=== PATIENT | female | born 1940 | race Caucasian/White ===

== ENCOUNTER 2017-11-10 16:09 | Inpatient (IN) ==
[2017-11-10] MEDS ORDERED: Naloxone 0.4 MG/ML INJ IVP PRN (21:47)
[2017-11-10] MEDS ORDERED: OXYCODONE Oral CONC 10 MG/0.5 ML ORAL.SYG SL PRN (21:47)
[2017-11-10] MEDS ORDERED: Ondansetron 4 MG/2 ML VIAL IVP PRN (21:47)
[2017-11-10] MEDS ORDERED: Melatonin 3 MG TABLET PO PRN (21:52)
[2017-11-10 21:55] LABS: Basophils % 0.1 %; Hematocrit 31.7 % (35.3-44.9); Hemoglobin 10.3 g/dL (11.5-15.4); Immature Granulocytes % 1.3 % (0-4); Lymphocytes # 1.1 K/mcL (0.6-4.6); Lymphocytes % 5.2 %; Mean Corpuscular HGB Conc 32.5 g/dL (31.6-35.5); Mean Corpuscular Hemoglobin 29.6 pg (28.0-33.3); Mean Corpuscular Volume 91.1 fL (83.0-100.0); Mean Platelet Volume 9.4 fL (9.4-12.4); Monocytes # 1.2 K/mcL (0.0-1.3); Monocytes % 5.5 %; Neutrophils # 18.9 K/mcL (1.6-8.9); Platelet Count 195 K/mcL (140-400); Red Blood Count 3.48 M/mcL (3.82-4.97); Red Cell Distribution Width 12.9 % (11.5-14.5); Segmented Neutrophils % 87.9 %
[2017-11-10 22:00] LABS: INR 1.3; Prothrombin Time 13.8 Seconds (9.4-12.1)
[2017-11-10] MEDS ORDERED: 0.9 % Sodium Chloride 1,000 ML IVC SCH (22:00)
[2017-11-10] MEDS ORDERED: Methyl Salicylate/Menthol 28 GM TUBE TP PRN (22:14)
[2017-11-10 22:19] LABS: Albumin 3.5 g/dL (3.5-5.7); Albumin/Globulin Ratio 1.1 (1.1-2.2); Bilirubin,Direct 0.4 mg/dL (0.0-0.2); Bilirubin,Indirect 0.5 mg/dL (0.0-1.2); Bilirubin,Total 0.9 mg/dL (0.3-1.0); Globulin 3.2 g/dL (2.4-3.5); Total Protein 6.7 g/dL (6.4-8.9)
[2017-11-10] MEDS: Piperacillin/Tazobactam 3.375 GM in 0.9 % Sodium Chloride Mini Bag 100 ML IVPB SCH (23:41)
[2017-11-10] MEDS ORDERED: 0.9 % Sodium Chloride 500 ML IVC ONE (23:48)
--- NOTE | 2017-11-10 23:59 | Internal Med History&Physical ---
Date of Encounter: 11/10/17 Time of Encounter: 22:00 Assessment and Plan (1) Sepsis Current visit: Yes Status: Acute Patient meets sepsis criteria with fever, and leukocytosis. The source of infection is suspected acute cholecystitis. - IV fluid resuscitation started in [place] emergency room, will continue - Antibiotics started, follow-up blood culture - Initial lactate acid level 1.29. Qualifiers: Sepsis type: sepsis due to unspecified organism Qualified Code(s): A41.9 - Sepsis, unspecified organism (2) Acute cholecystitis Current visit: Yes Status: Acute Place patient on nothing by mouth. IV fluid. IV antibiotics. Surgical consult. MRCP in a.m. to rule out bile duct obstruction. (3) History of CVA (cerebrovascular accident) Current visit: Yes Status: Acute May resume home medication if patient resume diet (4) DVT prophylaxis Current visit: Yes Status: Acute EPCD. Hold AC for possible surgery. Internal Medicine - H&P: HPI Chief complaint: Abdominal pain Admitted From: Home Plans for Post Hospital Care: Home History of present illness: Ms. Hernández is a 77 year old female with history of CVA with left-sided residual weakness, osteoarthritis, presented to [place] emergency room for abdominal pain for 3 days. Patient also has nausea and vomited several times. The vomiting are yellowish liquid, no blood in it. Patient has fever and few chills. Patient denies diarrhea or urination symptoms. In [place] emergency room, CT abdomen reveals acute cholecystitis. Patient has leukocytosis. Patient was given 3 L IV fluid and Zosyn 1 dose. General surgery consult was called by [place] emergency room. Patient was transferred to us for further management. I have discussed CODE STATUS with patient. Patient is awake alert oriented 3. she clearly told me that she does not want CPR if cardiac arrest happens but accept intubation if necessary. DNR CCA was placed. Past Med Surg Social Fam HX - Past Medical History Medical history: arthritis, CVA, hypertension, osteoporosis Psychiatric history: no psych history - Past Surgical History Surgical History: orthopedic, other - Social History Smoking Status: Former smoker Alcohol use: none Drug use: none - Family History Father Living Status: Hx Family Respiratory Disorders: Yes (COPD) Mother Living Status: Internal Medicine - H&P: Meds 3 Allergy/AdvReac Type Severity Reaction Status Date / Time prednisone AdvReac See Verified 11/10/17 20:07 Comments All Systems PM: A 10-system review of systems was performed and is negative for pertinent findings except as documented above in the HPI. - Constitutional Vitals: Temp Pulse Resp BP Pulse Ox 100.9 F H 76 14 78/44 94 11/10/17 23:24 11/10/17 23:30 11/10/17 23:30 11/10/17 23:30 11/10/17 23:24 General appearance: Present: A&O X 3, no acute distress, answers questions appropriately - Head Head exam: Present: atraumatic, normocephalic - Eye Eye exam: Present: PERRL, conjuntiva pink, sclera anicteric Pupils: Present: PERRL - Neck Neck exam general surgery: Present: supple, trachea midline. Absent: lymphadenopathy - Respiratory Respiratory exam: Present: CTAB. Absent: accessory muscle use, rales, rhonchi, wheezes - Cardiovascular Cardiovascular exam: Present: RRR, +S1, +S2. Absent: diastolic murmur, gallop, rubs, systolic murmur - GI/Abdominal GI/Abdominal exam: Present: normal bowel sounds, soft, tenderness (Mild abdominal tenderness, Morphy's sign positive), no peritoneal signs. Absent: distended - Extremities Exam Extremities exam: Present: warm, radial pulses palpable and symmetrical. Absent : calf tenderness, cyanotic, pedal edema - Neurological Exam Neurological exam: Present: CN II-XII intact, oriented X3, no focal deficits. Absent: pronater drift, facial droop, speech deficit - Skin Skin exam: Present: dry, intact Internal Med - H&P Results - Labs CBC & Chem 7: 11/10/17 21:42 Labs: Short CBC 11/10/17 Range/Units 21:42 WBC 21.5 H (4.3-11.1) K/mcL Hgb 10.3 L (11.5-15.4) g/dL Hct 31.7 L (35.3-44.9) % Plt Count 195 (140-400) K/mcL Neutrophils # 18.9 H (1.6-8.9) K/mcL Liver Function 11/10/17 Range/Units 21:42 Total Bilirubin 0.9 (0.3-1.0) mg/dL Direct Bilirubin 0.4 H (0.0-0.2) mg/dL AST 20 (13-39) Units/L ALT 13 (7-52) Units/L Alkaline Phosphatase 44 (34-104) Units/L Albumin 3.5 (3.5-5.7) g/dL
[2017-11-11 00:44] LABS: Basophils % 0.1 %; Hematocrit 29.6 % (35.3-44.9); Hemoglobin 9.5 g/dL (11.5-15.4); Immature Granulocytes % 1.5 % (0-4); Lymphocytes % 4.7 %; Mean Corpuscular HGB Conc 32.1 g/dL (31.6-35.5); Mean Corpuscular Hemoglobin 29.4 pg (28.0-33.3); Mean Corpuscular Volume 91.6 fL (83.0-100.0); Mean Platelet Volume 9.6 fL (9.4-12.4); Monocytes # 1.2 K/mcL (0.0-1.3); Monocytes % 5.6 %; Neutrophils # 19.3 K/mcL (1.6-8.9); Platelet Count 188 K/mcL (140-400); Red Blood Count 3.23 M/mcL (3.82-4.97); Red Cell Distribution Width 12.9 % (11.5-14.5); Segmented Neutrophils % 88.1 %
[2017-11-11] MEDS: 0.9 % Sodium Chloride 1,000 ML IVC SCH ×2 (00:51→12:03)
[2017-11-11 01:06] LABS: BUN/Creatinine Ratio 26 (6-26); Blood Urea Nitrogen 23 mg/dL (8-23); Calcium 8.3 mg/dL (8.6-10.3); Carbon Dioxide 21 mEq/L (23-29); Chloride 108 mEq/L (98-107); Glucose 87 mg/dL (70-105); Magnesium 1.6 mg/dL (1.6-2.6); Osmolality,Calculated 285 (280-300); Potassium 3.6 mEq/L (3.5-5.1); Sodium 136 mEq/L (136-145); eGFR For African Americans > 60 (> 60); eGFR For Non-African Americans > 60 (> 60)
[2017-11-11 06:57] LABS: Alanine Aminotransferase 12 Units/L (7-52); Albumin 3.3 g/dL (3.5-5.7); Albumin/Globulin Ratio 1.1 (1.1-2.2); Alkaline Phosphatase 41 Units/L (34-104); Aspartate Amino Transferase 18 Units/L (13-39); Bilirubin,Direct 0.3 mg/dL (0.0-0.2); Bilirubin,Indirect 0.5 mg/dL (0.0-1.2); Bilirubin,Total 0.8 mg/dL (0.3-1.0); Globulin 2.9 g/dL (2.4-3.5); Total Protein 6.2 g/dL (6.4-8.9)
[2017-11-11] MEDS: Piperacillin/Tazobactam 3.375 GM in 0.9 % Sodium Chloride Mini Bag 100 ML IVPB SCH ×3 (08:03→23:41)
--- NOTE | 2017-11-11 11:46 | General Surgery Consult Note ---
<Génesis Bell - Last Filed: 11/11/17 11:42> Date of Encounter: 11/11/17 Time of Encounter: 11:30 Assessment and Plan (1) Acute cholecystitis Current Visit: Yes Status: Acute NPO IV fluids IV antibiotics- Zosyn Supportive care and pain control Risks, benefits, alternatives, expected outcomes have been reviewed with the patient and she is in agreement to proceed to the operating room today with Dr. Graham for a laparoscopic cholecystectomy with possible cholangiogram and possible open Incentive Spirometer every 1 hour while awake Ambulate hallways TID with assistance PPI daily for GI prophylaxis Repeat am labs- CBC (2) History of CVA (cerebrovascular accident) Current Visit: Yes Status: Acute Hold plavix for now for surgical intervention Last dose 11/10/17 History of Present Illness Consult date: 11/11/17 Reason for consult: other (Acute cholecystitis) Requesting physician: Tari Travis History of present illness: Mrs. Hernández is a 77 year old female with multiple comorbidities who presented to [place] from [facility] with complaints of a 3 day history of abdominal pain. She states that her abdomen hurt all over. She describes as a sharp and stabbing pain which was constant. She denies ever having pain like this before. She is unable to pinpoint any aggravating or alleviating factors. She does report multiple episodes of nausea and vomiting. Denies any hematemesis or coffee-ground emesis. Denies any diarrhea or constipation. Denies any heartburn. Denies any difficulty with urination. She did have a CAT scan at [facility] which was concerning for acute cholecystitis. She was transferred for further workup. She has had an MRCP today which confirms acute cholecystitis as well as cholelithiasis with a gallstone in the neck of the gallbladder and cystic duct. We have been asked to see and evaluate the patient for evaluation and treatment. The patient is on Plavix for a history of a CVA. She states her last dose of Plavix was yesterday 11/10/17. Past Med Surg Social Fam HX - Past Medical History Source: patient Medical history: arthritis, CVA (residual left sided weakness), hypertension, osteoporosis, other (spinal stenosis) Psychiatric history: no psych history - Past Surgical History Surgical History: appendectomy, orthopedic, other (spine surgery for removal of a bone spur), other (colonoscopy approximately 10 years ago (normal exam)) - Social History Smoking Status: Former smoker Alcohol use: none Drug use: none Current living situation: Home - Independent Activity Level: Independent ambulation - Family History Father Living Status: Hx Family Respiratory Disorders: Yes (COPD) Mother Living Status: Medications and Allergies Citalopram Hydrobromide [Citalopram HBr] 10 mg PO DAILY 11/11/17 [History] Clopidogrel [Plavix] 75 mg PO DAILY 11/11/17 [History] Gabapentin [Neurontin] 300 mg PO TID 11/11/17 [History] HYDROcodone/Acet 5/325 mg [[place] 5-325 mg] 1 tab PO TID PRN 11/11/17 [History] Lisinopril [Zestril] 10 mg PO DAILY 11/11/17 [History] Polyethylene Glycol 3350 [MiraLAX bowel prep] 17 gm PO Q48H 11/11/17 [History] Rosuvastatin Calcium [Crestor] 5 mg PO HS 11/11/17 [History] 3 Allergy/AdvReac Type Severity Reaction Status Date / Time prednisone AdvReac See Verified 11/11/17 09:35 Comments Review of Systems All systems PM: reviewed and no additional remarkable complaints except as stated (in the HPI) All systems PM: The remainder of the systems were reviewed and are negative General Surgery Exam Initial Vital Signs Temp Pulse Resp BP Pulse Ox 100.5 F H 78 17 91/48 92 11/10/17 20:05 11/10/17 20:05 11/10/17 20:05 11/10/17 20:05 11/10/17 20:05 - General physical appearance well developed, well nourished, moderate pain, chronically ill - Eyes normal ocular movement - ENT normal mucosa, atraumatic, normocephalic - Neck trachea midline - Cardiovascular Cardiovascular exam: Present: RRR - Abdomen Abdomen general surgery: Present: bowel sounds present, soft, tender Abdominal Tenderness: Present: diffusely - Integumentary Integumentary general surgery: Present: warm and dry - Neurologic Present: CN 2-12 grossly intact - Musculoskeletal Present: other (left sided weakness from previous CVA in her 40's) - Psychiatric Psychiatric general surgery: Present: appropriate, oriented to person, oriented to place, oriented to time, speech is normal, memory intact Exam Initial Vital Signs Temp Pulse Resp BP Pulse Ox 100.5 F H 78 17 91/48 92 11/10/17 20:05 11/10/17 20:05 11/10/17 20:05 11/10/17 20:05 11/10/17 20:05 Results - Labs 11/11/17 00:30 11/11/17 00:30 Abnormal lab results WBC 21.9 K/mcL (4.3-11.1) H 11/11/17 00:30 RBC 3.23 M/mcL (3.82-4.97) L 11/11/17 00:30 Hgb 9.5 g/dL (11.5-15.4) L 11/11/17 00:30 Hct 29.6 % (35.3-44.9) L 11/11/17 00:30 Neutrophils # 19.3 K/mcL (1.6-8.9) H 11/11/17 00:30 PT 13.8 Seconds (9.4-12.1) H 11/10/17 21:42 Chloride 108 mEq/L (98-107) H 11/11/17 00:30 Carbon Dioxide 21 mEq/L (23-29) L 11/11/17 00:30 POC Glucose 90 mg/dL (58-89) H 11/11/17 11:01 Calcium 8.3 mg/dL (8.6-10.3) L 11/11/17 00:30 Direct Bilirubin 0.3 mg/dL (0.0-0.2) H 11/11/17 00:30 Serum Total Protein 6.2 g/dL (6.4-8.9) L 11/11/17 00:30 Albumin 3.3 g/dL (3.5-5.7) L 11/11/17 00:30 Diabetes panel 11/10/17 11/11/17 Range/Units 21:42 00:30 Sodium 136 (136-145) mEq/L Potassium 3.6 (3.5-5.1) mEq/L Chloride 108 H (98-107) mEq/L Carbon Dioxide 21 L (23-29) mEq/L BUN 23 (8-23) mg/dL Creatinine 0.90 (0.60-1.20) mg/dL Glucose 87 (70-105) mg/dL Calcium 8.3 L (8.6-10.3) mg/dL AST 20 18 (13-39) Units/L ALT 13 12 (7-52) Units/L Alkaline Phosphatase 44 41 (34-104) Units/L Albumin 3.5 3.3 L (3.5-5.7) g/dL Calcium panel 11/10/17 11/11/17 Range/Units 21:42 00:30 Calcium 8.3 L (8.6-10.3) mg/dL Albumin 3.5 3.3 L (3.5-5.7) g/dL Pituitary panel 11/11/17 Range/Units 00:30 Sodium 136 (136-145) mEq/L Potassium 3.6 (3.5-5.1) mEq/L Chloride 108 H (98-107) mEq/L Carbon Dioxide 21 L (23-29) mEq/L BUN 23 (8-23) mg/dL Creatinine 0.90 (0.60-1.20) mg/dL Glucose 87 (70-105) mg/dL Calcium 8.3 L (8.6-10.3) mg/dL Adrenal panel 11/10/17 11/11/17 Range/Units 21:42 00:30 Sodium 136 (136-145) mEq/L Potassium 3.6 (3.5-5.1) mEq/L Chloride 108 H (98-107) mEq/L Carbon Dioxide 21 L (23-29) mEq/L BUN 23 (8-23) mg/dL Creatinine 0.90 (0.60-1.20) mg/dL Glucose 87 (70-105) mg/dL Calcium 8.3 L (8.6-10.3) mg/dL Total Bilirubin 0.9 0.8 (0.3-1.0) mg/dL AST 20 18 (13-39) Units/L ALT 13 12 (7-52) Units/L Alkaline Phosphatase 44 41 (34-104) Units/L Albumin 3.5 3.3 L (3.5-5.7) g/dL All other labs normal. - Imaging Additional studies: Abdomen MRI 11/11/17 09:07 IMPRESSION: 2 cm gallstone positioned in the gallbladder neck/cystic duct with imaging findings consistent with acute cholecystitis. There is no biliary dilatation or evidence for choledocholithiasis. Small volume ascites. Trace ascites. Lower lobe opacities are favored to represent relaxation atelectasis. The findings were sent to the Radiology Results Communication [facility] at 10:36 am on 11/11/2017to be communicated to a licensed caregiver. D/ / Reinaldo Hernandez / Reinaldo Hernandez Interpreting Provider: Reinaldo Hernandez Consult Discharge Plan - Plan Referrals: Rasheeda Yeh MD [Non-Partnered Physician] - - Attending Attestation For this encounter, I have reviewed the SUPPLY CHAIN PLANNER or PA documentation, treatment plan, and medical decision making; and I have had face to face time with this patient. <Nakia Graham - Last Filed: 11/11/17 13:15> Date of Encounter: 11/11/17 Assessment and Plan (1) Acute cholecystitis Current Visit: Yes Status: Acute discussed imaging CT and MRCP with patient, she has acute cholecystitis, will plan laparoscopic cholecystectomy, possible cholangiograms, possible open , risks and benefits discussed and she wishes to proceed continue abx npo prn pain control Review of Systems All systems PM: The remainder of the systems were reviewed and are negative General Surgery Exam Initial Vital Signs Temp Pulse Resp BP Pulse Ox 100.5 F H 78 17 91/48 92 11/10/17 20:05 11/10/17 20:05 11/10/17 20:05 11/10/17 20:05 11/10/17 20:05 - General physical appearance well developed, well nourished, moderate pain - Eyes PERRL, normal ocular movement - ENT normal mucosa, normocephalic - Neck trachea midline - Respiratory normal expansion - Cardiovascular Cardiovascular exam: Present: RRR - Abdomen Abdomen general surgery: Present: bowel sounds present, soft, tender. Absent: distended, guarding, rebound Abdominal Tenderness: Present: RUQ - Integumentary Integumentary general surgery: Present: warm and dry - Neurologic Present: CN 2-12 grossly intact - Musculoskeletal Present: other - Psychiatric Psychiatric general surgery: Present: A&Ox3, speech is normal Exam Initial Vital Signs Temp Pulse Resp BP Pulse Ox 100.5 F H 78 17 91/48 92 11/10/17 20:05 11/10/17 20:05 11/10/17 20:05 11/10/17 20:05 11/10/17 20:05 Results - Labs 11/11/17 00:30 11/11/17 00:30 Abnormal lab results WBC 21.9 K/mcL (4.3-11.1) H 11/11/17 00:30 RBC 3.23 M/mcL (3.82-4.97) L 11/11/17 00:30 Hgb 9.5 g/dL (11.5-15.4) L 11/11/17 00:30 Hct 29.6 % (35.3-44.9) L 11/11/17 00:30 Neutrophils # 19.3 K/mcL (1.6-8.9) H 11/11/17 00:30 PT 13.8 Seconds (9.4-12.1) H 11/10/17 21:42 Chloride 108 mEq/L (98-107) H 11/11/17 00:30 Carbon Dioxide 21 mEq/L (23-29) L 11/11/17 00:30 POC Glucose 90 mg/dL (58-89) H 11/11/17 11:01 Calcium 8.3 mg/dL (8.6-10.3) L 11/11/17 00:30 Direct Bilirubin 0.3 mg/dL (0.0-0.2) H 11/11/17 00:30 Serum Total Protein 6.2 g/dL (6.4-8.9) L 11/11/17 00:30 Albumin 3.3 g/dL (3.5-5.7) L 11/11/17 00:30 Diabetes panel 11/10/17 11/11/17 Range/Units 21:42 00:30 Sodium 136 (136-145) mEq/L Potassium 3.6 (3.5-5.1) mEq/L Chloride 108 H (98-107) mEq/L Carbon Dioxide 21 L (23-29) mEq/L BUN 23 (8-23) mg/dL Creatinine 0.90 (0.60-1.20) mg/dL Glucose 87 (70-105) mg/dL Calcium 8.3 L (8.6-10.3) mg/dL AST 20 18 (13-39) Units/L ALT 13 12 (7-52) Units/L Alkaline Phosphatase 44 41 (34-104) Units/L Albumin 3.5 3.3 L (3.5-5.7) g/dL Calcium panel 11/10/17 11/11/17 Range/Units 21:42 00:30 Calcium 8.3 L (8.6-10.3) mg/dL Albumin 3.5 3.3 L (3.5-5.7) g/dL Pituitary panel 11/11/17 Range/Units 00:30 Sodium 136 (136-145) mEq/L Potassium 3.6 (3.5-5.1) mEq/L Chloride 108 H (98-107) mEq/L Carbon Dioxide 21 L (23-29) mEq/L BUN 23 (8-23) mg/dL Creatinine 0.90 (0.60-1.20) mg/dL Glucose 87 (70-105) mg/dL Calcium 8.3 L (8.6-10.3) mg/dL Adrenal panel 11/10/17 11/11/17 Range/Units 21:42 00:30 Sodium 136 (136-145) mEq/L Potassium 3.6 (3.5-5.1) mEq/L Chloride 108 H (98-107) mEq/L Carbon Dioxide 21 L (23-29) mEq/L BUN 23 (8-23) mg/dL Creatinine 0.90 (0.60-1.20) mg/dL Glucose 87 (70-105) mg/dL Calcium 8.3 L (8.6-10.3) mg/dL Total Bilirubin 0.9 0.8 (0.3-1.0) mg/dL AST 20 18 (13-39) Units/L ALT 13 12 (7-52) Units/L Alkaline Phosphatase 44 41 (34-104) Units/L Albumin 3.5 3.3 L (3.5-5.7) g/dL All other labs normal. - Imaging CT scan - abdomen: report reviewed - Attending Attestation I have personally performed a face to face evaluation on this patient. I have reviewed and agree with the care plan. History and Exam by me shows:
[2017-11-11] MEDS ORDERED: Ketorolac 15 MG/ML VIAL IVP ONE (12:00)
[2017-11-11] MEDS: Gabapentin 300 MG CAPSULE PO SCH ×3 (12:03→21:26)
[2017-11-11] MEDS ORDERED: Lidocaine -MPF 2% 2 ML VIAL ONE (12:32)
[2017-11-11] MEDS ORDERED: *HR* Rocuronium Bromide 50 MG/5 ML VIAL ONE (12:32)
[2017-11-11] MEDS ORDERED: Ondansetron 4 MG/2 ML VIAL ONE (12:32)
[2017-11-11] MEDS ORDERED: *HR* Propofol 200 MG/20 ML VIAL IVP ONE (12:33)
[2017-11-11] MEDS ORDERED: *HR* FentaNYL (PF) 100 MCG/2 ML VIAL ONE (12:33)
[2017-11-11] MEDS ORDERED: Isovue-300 50 ML VIAL IVP ONE (12:57)
--- NOTE | 2017-11-11 13:12 | Anesthesia Evaluation PreOp ---
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 History: CVA (left residual weakness) Other Medical History: Denies Any Significant HX Anesthesia History: No Prior Anesthetic Complications, Past Anesthesia Alcohol Use: none Drug use: none Medications and Allergies Citalopram Hydrobromide [Citalopram HBr] 10 mg PO DAILY 11/11/17 [History] Clopidogrel [Plavix] 75 mg PO DAILY 11/11/17 [History] Gabapentin [Neurontin] 300 mg PO TID 11/11/17 [History] HYDROcodone/Acet 5/325 mg [[place] 5-325 mg] 1 tab PO TID PRN 11/11/17 [History] Lisinopril [Zestril] 10 mg PO DAILY 11/11/17 [History] Polyethylene Glycol 3350 [MiraLAX bowel prep] 17 gm PO Q48H 11/11/17 [History] Rosuvastatin Calcium [Crestor] 5 mg PO HS 11/11/17 [History] 3 Allergy/AdvReac Type Severity Reaction Status Date / Time prednisone AdvReac See Verified 11/11/17 09:35 Comments - Meds/Allergy Pre-op Review Medications Reviewed: Yes Allergies Reviewed: Yes Beta Blockers on Current Med List: No Anesthesia Results - Labs 11/11/17 00:30 11/11/17 00:30 - Imaging EKG: report reviewed (11/11/2017 SR) Anesthesia Exam Vital Signs/O2 Sat/Glucose, Most Recent Temp Pulse Resp BP Pulse Ox 99.0 F 67 17 109/58 87 11/11/17 10:58 11/11/17 10:58 11/11/17 10:58 11/11/17 10:58 11/11/17 10:58 Blood Glucose* 90 Height: 5'4''/1.63 m Weight: 129 lbs/58.5 kg NPO (# of Hours): 8 - HEENT Pupil (Motor): EOMI Mallampati: II Teeth: Edentulous Oral Opening: Greater than 3 - BEATER DUMPER LOC: Oriented BEATER DUMPER Motor: Normal RUE, Normal RLE, Normal Face, Deficit LUE, Deficit LLE BEATER DUMPER Sensory: Normal: RUE, RLE, Face, Deficit: LUE, LLE - Cardiac Rhythm: Regular Murmur: None - Pulmonary Breath Sounds: bilateral Clear Respiratory Effort: Symmetrical Anesthesia Assess/Plan ASA Score: 3 Modified Lisa Scale for Level of Consciousness: Cooperative, oriented, and tranquil Anesthetic Plan: General Monitoring Plan: Standard Monitors Recovery Plan: PACU
[2017-11-11] MEDS: Ringers Solution, Lactated 1,000 ML IVC SCH ×2 (13:15→14:52)
[2017-11-11] MEDS ORDERED: Dexamethasone 4 MG/ML VIAL ONE (13:45)
[2017-11-11] MEDS ORDERED: EPHEDrine 50 MG/ML VIAL ONE (13:46)
[2017-11-11] MEDS ORDERED: Ondansetron 4 MG/2 ML VIAL IVP ONE (13:49)
[2017-11-11] MEDS ORDERED: *HR* OxyCODONE Immed Rel 5 MG TABLET PO PRN (13:49)
[2017-11-11] MEDS ORDERED: *HR* Morphine 10 MG/ML VIAL ONE (14:16)
[2017-11-11] MEDS ORDERED: *HR* PHENYLEPHRINE 1,000 MCG/10 ML SYRINGE IVP ONE ×2 (14:49→15:22)
[2017-11-11] MEDS ORDERED: Heparin 1,000 UNITS/500 mL 500 ML ONE (15:19)
[2017-11-11] MEDS ORDERED: *HR* Phenylephrine 10 MG/ML VIAL ONE (15:42)
--- NOTE | 2017-11-11 16:38 | Operative Note ---
Date of procedure: 11/11/17 Pre-op diagnosis: acute cholecystitis Post-op diagnosis: same (and duct of [facility]) Procedure: Laparoscopic to open cholecystectomy Complications: none immediate Anesthesia: GETA, local Local Anesthetics: 0.5% Sensorcaine HCL SubQ (cc) Surgeon: Nakia Graham Was there an title i instructional assistant present: No Estimated blood loss (cc): 500 Specimen: gallbladder and contents Condition: stable Disposition: PACU Procedure in Detail: Patient was brought to the operating suite and placed supine on the operating table. Sign was performed and everyone was in agreement. Anesthesia was induced and patient was endotracheally intubated by anesthesia without incident. Her left arm due to her previous stroke and arm contracture was tucked on the left side. The abdomen was prepped and draped in the usual sterile fashion. Timeout was performed again everyone was in agreement. A supraumbilical incision through the skin and the subcutaneous tissue was made with an 11 blade. Towel clips are placed on either side of the umbilicus for retraction. A Veress needle was placed through the incision and a water drop test confirmed placement and the abdomen was insufflated. We entered the abdomen with a 5 mm 0 degree laparoscope and a 5 mm XL trocar. The area under visit entry was visualized and there was no apparent bowel injury and no bleeding. A 5 mm trocar was placed in the subxiphoid region after first incising the skin with an 11 blade. A third 5 mm port was placed in the midclavicular subcostal line under direct visualization after first incising the skin with an 11 blade. The laparoscope was placed through this and the 5 mm suprapubic port was exchanged for a 12 mm port under direct visualization. The last 5 mm port was placed in the right upper quadrant anterior axillary line subcostal position under direct visualization after first incising the skin with an 11 blade. The patient was placed in steep reverse Trendelenburg left side down position. The gallbladder was extremely large and tense and was unable to grasp with a grasper. The gallbladder was aspirated of approximately 60 mL of bile with the laparoscopic aspirator. The gallbladder was grasped at the dome with a laparoscopic grasper and retracted cephalad. The anatomy was aberrant in that the cystic structures in the common bile duct were much more left abdomen than normal and were underneath the falciform ligament precluding visualization. Due to inability to visualize the area the duct structures are located the decision to convert to open was made. All trochars were removed from the abdomen and the patient was placed in the supine position. A Romeo incision in the right upper quadrant through the skin and the subcutaneous tissue was made with a 15 blade including the previous 5 mm port sites. We dissected through the subcutaneous tissue to the anterior rectus fascia which was opened with the Bovie. A Marlene was placed beneath the anterior rectus muscles and the muscle fibers were split with the Bovie. The transected ends of the superior epigastric artery was controlled with Bovie. The posterior rectus fascia was opened and the incision elongated with the Bovie. A Bookwalter was placed for retraction and exposure. The dome of the gallbladder was grasped with a [place] for retraction. Using the Bovie the gallbladder was taken down off the liver edge in a dome down fashion. There was bleeding from the liver edge which was controlled with the Bovie and Surgicel. Due to the large nature of the gallbladder it made it extremely difficult to obtain appropriate visualization. The gallbladder at the dome was opened with the Bovie and bile suctioned free. There was one several centimeter large stone within the infundibulum which was removed. Using a right angle of the cystic artery and cystic duct were dissected out. Patient had a very short approximately 1 cm cystic duct. Two 5 mm hemoclips were placed proximally on the cystic artery and it was transected distally with Metzenbaum scissors. Two 10 mm hemoclips were placed on the cystic duct next to the common bile duct and the cystic duct was transected proximally near the gallbladder with Metzenbaum scissors. There was continued bleeding from the the liver edge which was bovied. 3 g 2 of Irish and pressure were used to stop the bleeding. Bile staining was noticed on the the lap and evaluation of the common bile duct demonstrated the cystic duct clips were intact. There was a 1-2 mm transected duct of [place] at the very proximal common bile duct. A 19 F flaco drain was placed into the gallbladder fossa through the right upper quadrant. The drain was trimmed with scissors and secured to the skin wiht a 2-0 nylon stitch. The peritoneum was closed with a 3-0 vicryl running stitch. The posterior rectus fascia was reapproximated with two #1 nonlooped running PDS stitches. The wound was irrigated with sterile saline. The anterior rectus fascia was reapproximated with a #1 nonlooped running PDS stitch. The subcutaneous tissue was irrigated with sterile saline and reapproximated with 3-0 vicryl interrupted stitches. The skin was closed with greg. The abdominal wall at the supraumbilical incision site was closed with an 0 Vicryl [id number] stitch. The skin was closed with greg. The 5 mm subxiphoid skin incision was closed with the staple. 4 x 4 gauze and Medipore tape as well as a drain sponge were applied as a dressing in the right upper quadrant. A large Band- Aid was placed over the supraumbilical incision. 3 lap counts were done before closing of the abdomen were correct. All lap and instrument counts were correct at the end of the case. Patient tolerated the procedure well. She was taken to PACU in stable position where she will be transfused with 1 pack of platelets and 1 unit of packed red blood cells. Additionally due to the open duct of [place] at the common bile duct, GI will be consult to for ERCP, stent placement and sphincterotomy.
[2017-11-11] MEDS ORDERED: 0.9 % Sodium Chloride 500 ML ONE ×2 (17:02→17:55)
--- NOTE | 2017-11-11 19:01 | Anesthesia Evaluation Post Op ---
Date of Encounter: 11/11/17 Time of Encounter: 18:55 - Vital Signs Vital Signs: vss - Lungs Lungs: Clear Ascult./Percussion - Airway Airway: Non-obstructed - Cardiovascular Regular Rate - Mental Status Mental Status: Alert & Oriented, Answers Appropriately - Pain Pain Scale: 7 Pain Scale used: Numeric (1 - 10) - Nausea Vomiting Nausea Vomiting: Not Present - Hydration Hydration: Tolerates oral liquids (took pain med with sip of water) - Discharge PostOp Status: Transfer Patient to floor (patient is receiving second unit of prbc's.)
[2017-11-11] MEDS ORDERED: Naloxone 0.4 MG/ML INJ IVP PRN (19:49)
[2017-11-11] MEDS ORDERED: Morphine Oral CONC 5 MG/0.25 ML ORAL.SYG PO PRN (19:49)
[2017-11-11] MEDS ORDERED: Ondansetron 4 MG/2 ML VIAL IVP PRN (19:49)
--- NOTE | 2017-11-11 19:52 | Internal Med Progress Note ---
Date of Encounter: 11/11/17 Time of Encounter: 19:32 - Assessment and plan (1) Sepsis Current Visit: Yes Status: Acute Assessment and plan: Secondary to acute cholecystitis s/p laparoscopic to open cholecystectomy Surgery following, recommendations appreciated Continue Zosyn Pain controlled Qualifiers: Sepsis type: sepsis due to unspecified organism Qualified Code(s): A41.9 - Sepsis, unspecified organism (2) Acute cholecystitis Current Visit: Yes Status: Acute Assessment and plan: s/p cholecystectomy 11/11, doing well (3) History of CVA (cerebrovascular accident) Current Visit: Yes Status: Acute (4) DVT prophylaxis Current Visit: Yes Status: Acute - Subjective Interval history: Patient returned from surgery, lap to open cholecystectomy. Patient states abdominal pain controlled, rated 7/10. Otherwise no complaints. - Constitutional Vitals: Temp Pulse Resp BP Pulse Ox 98.2 F 93 18 103/50 96 11/11/17 19:22 11/11/17 19:22 11/11/17 19:22 11/11/17 19:22 11/11/17 19:22 General appearance: Present: A&O X 3, no acute distress, answers questions appropriately Internal Medicine: Result - Labs CBC & Chem 7: 11/11/17 00:30 11/11/17 00:30 Labs: Short CBC 11/10/17 11/11/17 Range/Units 21:42 00:30 WBC 21.5 H 21.9 H (4.3-11.1) K/mcL Hgb 10.3 L 9.5 L (11.5-15.4) g/dL Hct 31.7 L 29.6 L (35.3-44.9) % Plt Count 195 188 (140-400) K/mcL Neutrophils # 18.9 H 19.3 H (1.6-8.9) K/mcL BMP 11/11/17 00:30 Sodium 136 Potassium 3.6 Chloride 108 H Carbon Dioxide 21 L BUN 23 Creatinine 0.90 Glucose 87 Calcium 8.3 L Liver Function 11/10/17 11/11/17 Range/Units 21:42 00:30 Total Bilirubin 0.9 0.8 (0.3-1.0) mg/dL Direct Bilirubin 0.4 H 0.3 H (0.0-0.2) mg/dL AST 20 18 (13-39) Units/L ALT 13 12 (7-52) Units/L Alkaline Phosphatase 44 41 (34-104) Units/L Albumin 3.5 3.3 L (3.5-5.7) g/dL - ABG Interpretation ABG results: PT/INR, D-dimer PT 13.8 Seconds (9.4-12.1) H 11/10/17 21:42 - Impressions Impressions Abdomen MRI 11/11/17 09:07 IMPRESSION: 2 cm gallstone positioned in the gallbladder neck/cystic duct with imaging findings consistent with acute cholecystitis. There is no biliary dilatation or evidence for choledocholithiasis. Small volume ascites. Trace ascites. Lower lobe opacities are favored to represent relaxation atelectasis. The findings were sent to the Radiology Results [facility] at 10:36 am on 11/11/2017to be communicated to a licensed caregiver. D/ / Reinaldo Hernandez / Reinaldo Hernandez Interpreting Provider: Reinaldo Hernandez - VTE Documentation of Mechanical Device: Intermittent pneumatic compression device Consult Discharge Plan - Plan Referrals: Rasheeda Yeh MD [Non-Partnered Physician] -
[2017-11-11] MEDS ORDERED: Furosemide 20 MG/2 ML VIAL IVP ONE (20:57)
[2017-11-11 21:46] LABS: Acinetobacter baumannii by PCR Not Detected (Not Detect); Candida albicans by PCR Not Detected (Not Detect); Candida glabrata by PCR Not Detected (Not Detect); Candida krusei by PCR Not Detected (Not Detect); Candida parapsilosis by PCR Not Detected (Not Detect); Candida tropicalis by PCR Not Detected (Not Detect); Enterococcus by PCR Not Detected (Not Detect); Escherichia coli by PCR Not Detected (Not Detect); Klebsiella oxytoca by PCR Not Detected (Not Detect); Klebsiella pneumoniae by PCR Not Detected (Not Detect); Pseudomonas aeruginosa by PCR Not Detected (Not Detect); Serratia marcescens by PCR Not Detected (Not Detect); Staphylococcus aureus by PCR Not Detected (Not Detect); Streptococcus agalactiae(B)PCR Not Detected (Not Detect); Streptococcus by PCR Not Detected (Not Detect); Streptococcus pneumoniae PCR Not Detected (Not Detect); Streptococcus pyogenes (A) PCR Not Detected (Not Detect); mecA Methicillin-Resist Gene Not Detected (Not Detect)
[2017-11-11] MEDS: Ipratropium/Albuterol Neb 3 ML IH SCH (22:01)
--- NOTE | 2017-11-11 22:48 | Event Note ---
Date of Encounter: 11/11/17 Time of Encounter: 22:20 Alerted by pts. nurse of lab results positive for gram positive cocci in blood cultures. Vancomycin IVPB w/Pharmacy dosing ordered for infection coverage. Subsequently alerted to fact that pt. was having difficulty voiding as well. Bladder scan revealed 720 mL. Hrering catheter ordered d/t acute urinary retention. Orders to monitor output and pt. given.
--- NOTE | 2017-11-11 23:03 | Event Note ---
Date of Encounter: 11/11/17 Time of Encounter: 20:49 Alerted by pts. nurse Emely that pt. had received 1 unit of platelets and 1 unit PRBCs. Patient found to have overlying crackles in all lung acosta on auscultations. Vital signs: BP 95/60, heart rate 83, SPO2 96% on 1 L, RR 16, temp 98.2F. Pts. nurse stated pt. was not having edema. 20 mg IVP lasix ordered once with orders to monitor BP Q1HR x2.
[2017-11-11] MEDS: OXYCODONE Oral CONC 10 MG/0.5 ML ORAL.SYG SL PRN (23:48)
[2017-11-11] MEDS: Acetaminophen IV 1,000 MG/100 ML INFUS..BTL IVPB SCH (23:57)
[2017-11-12 02:12] LABS: Basophils % 0.1 %; Hematocrit 22.4 % (35.3-44.9); Immature Granulocytes % 0.8 % (0-4); Lymphocytes # 0.4 K/mcL (0.6-4.6); Lymphocytes % 2.2 %; Mean Corpuscular Hemoglobin 29.6 pg (28.0-33.3); Mean Corpuscular Volume 89.6 fL (83.0-100.0); Monocytes % 5.5 %; Neutrophils # 16.5 K/mcL (1.6-8.9); Platelet Count 200 K/mcL (140-400); Red Cell Distribution Width 13.1 % (11.5-14.5); Segmented Neutrophils % 91.4 %
[2017-11-12 02:18] LABS: Hemoglobin 7.4 g/dL (11.5-15.4)
[2017-11-12 02:27] LABS: Albumin 2.8 g/dL (3.5-5.7); Bilirubin,Direct 0.4 mg/dL (0.0-0.2); Bilirubin,Indirect 0.4 mg/dL (0.0-1.2); Bilirubin,Total 0.8 mg/dL (0.3-1.0); Globulin 2.7 g/dL (2.4-3.5); Total Protein 5.5 g/dL (6.4-8.9)
[2017-11-12 02:28] LABS: BUN/Creatinine Ratio 26 (6-26); Blood Urea Nitrogen 27 mg/dL (8-23); Calcium 7.8 mg/dL (8.6-10.3); Carbon Dioxide 23 mEq/L (23-29); Chloride 108 mEq/L (98-107); Glucose 209 mg/dL (70-105); Osmolality,Calculated 293 (280-300); Potassium 3.6 mEq/L (3.5-5.1); Sodium 136 mEq/L (136-145); eGFR For African Americans > 60 (> 60); eGFR For Non-African Americans 51 (> 60)
[2017-11-12] MEDS: Ipratropium/Albuterol Neb 3 ML IH SCH ×4 (04:31→21:48)
[2017-11-12] MEDS ORDERED: 0.9 % Sodium Chloride 250 ML ONE ×2 (04:45→11:11)
[2017-11-12] MEDS: OXYCODONE Oral CONC 10 MG/0.5 ML ORAL.SYG SL PRN (07:50)
[2017-11-12] MEDS: Gabapentin 300 MG CAPSULE PO SCH ×3 (07:51→19:51)
[2017-11-12] MEDS: Piperacillin/Tazobactam 3.375 GM in 0.9 % Sodium Chloride Mini Bag 100 ML IVPB SCH ×3 (07:53→23:58)
[2017-11-12] MEDS: Acetaminophen IV 1,000 MG/100 ML INFUS..BTL IVPB SCH (09:46)
--- NOTE | 2017-11-12 14:55 | Internal Med Progress Note ---
Date of Encounter: 11/12/17 Time of Encounter: 14:53 - Assessment and plan (1) Sepsis Current Visit: Yes Status: Acute Assessment and plan: Secondary to acute cholecystitis s/p laparoscopic to open cholecystectomy Surgery following, recommendations appreciated Continue Zosyn Pain controlled Qualifiers: Sepsis type: sepsis due to unspecified organism Qualified Code(s): A41.9 - Sepsis, unspecified organism (2) Acute cholecystitis Current Visit: Yes Status: Acute Assessment and plan: s/p cholecystectomy 11/11 Patient require 2 units PRBC will recheck H&H after transfusion (3) History of CVA (cerebrovascular accident) Current Visit: Yes Status: Acute (4) Acute blood loss as cause of postoperative anemia Current Visit: Yes Status: Acute Assessment and plan: Patient finished 2 units of PRBC, will recheck H&H Patient states at home her SBP runs 100-110. Most recent was 106 mmHg in room Monitor vitals (5) DVT prophylaxis Current Visit: Yes Status: Acute - Subjective Interval history: Patient is POD #1 status-post lap to open cholecystectomy. 11/12: Abdominal pain feeling better, 11/22 was 6/10 yesterday. Prelim blood cultures grew G positive cocci in 1 of 2 samples and started on vancomycin. She had acute drop in hemoglobin and has been transfused 2 units PRBCs. - Constitutional Vitals: Temp Pulse Resp BP Pulse Ox 98.0 F 78 14 98/57 98 11/12/17 14:34 11/12/17 14:34 11/12/17 14:34 11/12/17 14:34 11/12/17 14:34 General appearance: Present: A&O X 3, no acute distress, answers questions appropriately Exam: CVS: RRR Lungs: CTAB Abd: soft, mild TTP limited exam due to post op state, Normal bowel sounds. Dressing, incision site c/d/i Ext: no edema, no cyanosis. Internal Medicine: Result - Labs CBC & Chem 7: 11/12/17 01:48 11/12/17 01:48 Labs: Short CBC 11/12/17 Range/Units 01:48 WBC 18.0 H (4.3-11.1) K/mcL Hgb 7.4 L D (11.5-15.4) g/dL Hct 22.4 L (35.3-44.9) % Plt Count 200 (140-400) K/mcL Neutrophils # 16.5 H (1.6-8.9) K/mcL BMP 11/12/17 01:48 Sodium 136 Potassium 3.6 Chloride 108 H Carbon Dioxide 23 BUN 27 H Creatinine 1.05 Glucose 209 H Calcium 7.8 L Liver Function 11/12/17 Range/Units 01:48 Total Bilirubin 0.8 (0.3-1.0) mg/dL Direct Bilirubin 0.4 H (0.0-0.2) mg/dL AST 111 H (13-39) Units/L ALT 77 H (7-52) Units/L Alkaline Phosphatase 45 (34-104) Units/L Albumin 2.8 L (3.5-5.7) g/dL - ABG Interpretation ABG results: PT/INR, D-dimer PT 13.8 Seconds (9.4-12.1) H 11/10/17 21:42 - VTE Documentation of Mechanical Device: Intermittent pneumatic compression device Consult Discharge Plan - Plan Referrals: Rasheeda Yeh MD [Non-Partnered Physician] -
[2017-11-12 15:44] LABS: Hematocrit 29.5 % (35.3-44.9)
[2017-11-12 15:48] LABS: Hemoglobin 9.9 g/dL (11.5-15.4)
--- NOTE | 2017-11-12 15:53 | Electrocardiograph Report ---
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
--- NOTE | 2017-11-12 18:23 | General Surgery Progress Note ---
<Parveen Samuel - Last Filed: 11/12/17 18:20> Date of Encounter: 11/12/17 Time of Encounter: 11:00 - Assessment and Plan (1) Acute cholecystitis Current Visit: Yes Status: Acute POD #1- Laparoscopic to open cholecystectomy by Dr. Graham. Possible open duct of Luschka at the common bile duct was observed. Plan: Clear liquid diet. Advanced as tolerated. May advance to full liquid diet for dinner if patient tolerated Clear liquid diet without any nausea, vomiting, or difficulty. Plan for G.I. consult and possibly ERCP on Tuesday per Dr. Graham Supportive care and pain control Incentive spirometer every 1 hour while awake GI prophylaxis Out of bed to chair and ambulate hallways 3 times a day with assistance continue to monitor the patient closely (2) Status post cholecystectomy Current Visit: Yes Status: Acute POD #1- Laparoscopic to open cholecystectomy by Dr. Graham. Possible open duct of Luschka at the common bile duct was observed. See plan as above (3) Acute blood loss as cause of postoperative anemia Current Visit: Yes Status: Acute Hemoglobin went from 9.5 to 7.4. Patient's was transfuse with 2 units of PRBC and repeat hemoglobin was 9.9. Continue to monitor. Management per primary team. Subjective Patient reports: no new complaints, feels better, pain is less (Patient admits abdominal soreness but state that it is improved significantly compared to yesterday.), tolerating liquids well, no flatus, no bowel movement, nausea ( Patient admits nausea but no vomiting.), afebrile Objective Vital Signs - Last 8 Hours Temp Pulse Resp BP Pulse Ox 11/12/17 15:52 14 98 11/12/17 14:34 98.0 F 78 14 98/57 98 11/12/17 11:31 97.7 F 86 16 106/65 11/12/17 11:16 98.5 F 86 16 99/52 94 11/12/17 10:48 18 95 11/12/17 10:30 97.5 F L 70 18 102/66 95 Intake and Output 11/12/17 11/12/17 11/12/17 07:59 15:59 23:59 Intake Total 775 / 775 1065 / 1065 Output Total 340 / 340 210 / 210 360 / 360 Balance 435 / 435 855 / 855 -360 / -360 Intake: IV Fluids 470 / 470 200 / 200 0.9 % Sodium Chloride 250 ML @ 20 / 20 0 mls/hr .ROUTE .[facility] Rx #:[id number] Ofirmev 1,000 mg/100 ml 1,000 100 / 100 100 / 100 mg In 100 ml @ 400 mls/hr IVPB Q8HR [facility] Rx#:[id number] Zosyn 3.375 GM In 0.9 % Sodium 100 / 100 100 / 100 Chloride (Mini-Bag +) 100 ML @ 25 mls/hr IVPB Q8HR [facility] Rx#: [id number] Vancocin 1,000 MG In 0.9 % 250 / 250 Sodium Chloride 250 ML @ 167 mls/hr IVPB Q24H [facility] Rx#: [id number] Oral 50 / 50 600 / 600 Blood Product 255 / 255 265 / 265 Rbcs Leuko Poor As-1 Unit 265 / 265 [id number] Rbcs Leuko Poor As-1 Unit 255 / 255 [id number] Output: Catheter 300 / 300 150 / 150 300 / 300 Wound Drainage 40 / 40 60 / 60 60 / 60 Right Upper Abdomen 40 / 40 60 / 60 60 / 60 Other: Meal Clears Weight 58.513 kg Blood Glucose* 222 Patient Weight 11/12/17 23:59 Weight 58.513 kg - General physical appearance well developed, well nourished, no distress - Eyes PERRL, normal ocular movement - ENT normal mucosa - Neck Neck exam: trachea midline - Respiratory normal expansion, normal respiratory effort, other (Decreased breath sounds in the lower bilateral bases) - Cardiovascular Cardiovascular exam: Present: RRR, no murmurs/rubs/gallops - Abdomen Abdomen: Present: soft, tender (Minimal tenderness. Expected postoperative tenderness.). Absent: bowel sounds present, distended - Incision Incision: Present: clean and dry, intact. Absent: draining, purulent - Integumentary no rash - Psychiatric oriented to time, oriented to person, oriented to place - Labs 11/12/17 15:20 11/12/17 01:48 Diabetes panel 11/12/17 11/12/17 Range/Units 01:48 01:48 Sodium 136 (136-145) mEq/L Potassium 3.6 (3.5-5.1) mEq/L Chloride 108 H (98-107) mEq/L Carbon Dioxide 23 (23-29) mEq/L BUN 27 H (8-23) mg/dL Creatinine 1.05 (0.60-1.20) mg/dL Glucose 209 H (70-105) mg/dL Calcium 7.8 L (8.6-10.3) mg/dL AST 111 H (13-39) Units/L ALT 77 H (7-52) Units/L Alkaline Phosphatase 45 (34-104) Units/L Albumin 2.8 L (3.5-5.7) g/dL Calcium panel 11/12/17 11/12/17 Range/Units 01:48 01:48 Calcium 7.8 L (8.6-10.3) mg/dL Albumin 2.8 L (3.5-5.7) g/dL Pituitary panel 11/12/17 Range/Units 01:48 Sodium 136 (136-145) mEq/L Potassium 3.6 (3.5-5.1) mEq/L Chloride 108 H (98-107) mEq/L Carbon Dioxide 23 (23-29) mEq/L BUN 27 H (8-23) mg/dL Creatinine 1.05 (0.60-1.20) mg/dL Glucose 209 H (70-105) mg/dL Calcium 7.8 L (8.6-10.3) mg/dL Adrenal panel 11/12/17 11/12/17 Range/Units 01:48 01:48 Sodium 136 (136-145) mEq/L Potassium 3.6 (3.5-5.1) mEq/L Chloride 108 H (98-107) mEq/L Carbon Dioxide 23 (23-29) mEq/L BUN 27 H (8-23) mg/dL Creatinine 1.05 (0.60-1.20) mg/dL Glucose 209 H (70-105) mg/dL Calcium 7.8 L (8.6-10.3) mg/dL Total Bilirubin 0.8 (0.3-1.0) mg/dL AST 111 H (13-39) Units/L ALT 77 H (7-52) Units/L Alkaline Phosphatase 45 (34-104) Units/L Albumin 2.8 L (3.5-5.7) g/dL - VTE Documentation of Mechanical Device: Intermittent pneumatic compression device Consult Discharge Plan - Plan Referrals: Rasheeda Yhe MD [Non-Partnered Physician] - <Chadwick Aguiar M - Last Filed: 11/13/17 07:57> Date of Encounter: 11/12/17 Objective Vital Signs - Last 8 Hours Temp Pulse Resp BP Pulse Ox 11/13/17 07:21 97.5 F L 73 19 109/67 94 11/13/17 03:56 98.3 F 72 17 128/75 100 11/13/17 03:42 18 96 11/13/17 00:06 98.4 F 75 16 111/68 98 Intake and Output 11/12/17 11/12/17 11/13/17 15:59 23:59 07:59 Intake Total 1065 / 1065 700 / 700 200 / 200 Output Total 210 / 210 360 / 360 1050 / 1050 Balance 855 / 855 340 / 340 -850 / -850 Intake: IV Fluids 200 / 200 100 / 100 200 / 200 Ofirmev 1,000 mg/100 ml 1,000 100 / 100 100 / 100 mg In 100 ml @ 400 mls/hr IVPB Q8H [facility] Rx#:[id number] Zosyn 3.375 GM In 0.9 % Sodium 100 / 100 100 / 100 100 / 100 Chloride (Mini-Bag +) 100 ML @ 25 mls/hr IVPB Q8HR [facility] Rx#: [id number] Oral 600 / 600 600 / 600 0 / 0 Blood Product 265 / 265 Rbcs Leuko Poor As-1 Unit 265 / 265 [id number] Output: Catheter 150 / 150 300 / 300 900 / 900 Wound Drainage 60 / 60 60 / 60 150 / 150 Right Upper Abdomen 60 / 60 60 / 60 150 / 150 Other: Meal Clears Dinner Percent of Meal Consumed 90% Weight 58.513 kg Patient Weight 11/13/17 23:59 Weight 58.513 kg - Labs 11/12/17 15:20 11/12/17 01:48 - Attending Attestation I examined this patient and my medical decision-making was reviewed with the Resident Physician. I agree with the documented findings, disposition and treatment plan as described except to the extent set forth below. Review the above assessment and evaluation and agree with the above-mentioned plan. Will closely monitor AYSHA drainage output and laboratory studies. We will start to advance her diet.
[2017-11-12] MEDS ORDERED: Acetaminophen IV 1,000 MG/100 ML INFUS..BTL IVPB SCH (20:00)
[2017-11-13] MEDS: Ipratropium/Albuterol Neb 3 ML IH SCH ×4 (03:40→21:04)
[2017-11-13] MEDS: Acetaminophen IV 1,000 MG/100 ML INFUS..BTL IVPB SCH ×4 (03:59→21:23)
[2017-11-13] MEDS ORDERED: Aminoglycoside Consult 1 EACH MC ONE (07:59)
[2017-11-13 08:21] LABS: Basophils % 0.1 %; Eosinophils % 0.1 %; Hematocrit 28.9 % (35.3-44.9); Hemoglobin 9.6 g/dL (11.5-15.4); Immature Granulocytes % 0.5 % (0-4); Lymphocytes # 0.9 K/mcL (0.6-4.6); Lymphocytes % 6.8 %; Mean Corpuscular HGB Conc 33.2 g/dL (31.6-35.5); Mean Corpuscular Hemoglobin 29.2 pg (28.0-33.3); Mean Corpuscular Volume 87.8 fL (83.0-100.0); Mean Platelet Volume 9.6 fL (9.4-12.4); Monocytes % 7.4 %; Neutrophils # 11.4 K/mcL (1.6-8.9); Platelet Count 211 K/mcL (140-400); Red Blood Count 3.29 M/mcL (3.82-4.97); Red Cell Distribution Width 13.9 % (11.5-14.5); Segmented Neutrophils % 85.1 %
[2017-11-13 08:56] LABS: BUN/Creatinine Ratio 22 (6-26); Blood Urea Nitrogen 19 mg/dL (8-23); Calcium 8.6 mg/dL (8.6-10.3); Carbon Dioxide 26 mEq/L (23-29); Chloride 109 mEq/L (98-107); Glucose 92 mg/dL (70-105); Osmolality,Calculated 292 (280-300); Potassium 3.9 mEq/L (3.5-5.1); Sodium 140 mEq/L (136-145); eGFR For African Americans > 60 (> 60); eGFR For Non-African Americans > 60 (> 60)
[2017-11-13] MEDS: Gabapentin 300 MG CAPSULE PO SCH ×3 (10:05→20:45)
[2017-11-13] MEDS: Piperacillin/Tazobactam 3.375 GM in 0.9 % Sodium Chloride Mini Bag 100 ML IVPB SCH ×3 (10:06→19:08)
[2017-11-13] MEDS ORDERED: MORPHINE SUL Oral CONC 10 MG/0.5 ML ORAL.SYG PO PRN (14:00)
--- NOTE | 2017-11-13 14:16 | General Surgery Progress Note ---
<Candie Samuel-Malia - Last Filed: 11/13/17 16:39> Date of Encounter: 11/13/17 Time of Encounter: 10:45 - Assessment and Plan (1) Acute cholecystitis Current Visit: Yes Status: Acute POD #2- Laparoscopic to open cholecystectomy by Dr. Graham. Possible open duct of Luschka at the common bile duct was observed. Plan: Soft food diet for dinner. Advanced as tolerated. NPO at midnight IVF at midnight Plan for G.I. consult and possibly ERCP on Tuesday per Dr. Graham Supportive care and pain control Incentive spirometer every 1 hour while awake GI prophylaxis Out of bed to chair and ambulate hallways 3 times a day with assistance continue to monitor the patient closely (2) Status post cholecystectomy Current Visit: Yes Status: Acute POD #2- Laparoscopic to open cholecystectomy by Dr. Graham. Possible open duct of Luschka at the common bile duct was observed. See plan as above (3) Acute blood loss as cause of postoperative anemia Current Visit: Yes Status: Acute Hemoglobin went from 9.5 to 7.4. Patient's was transfuse with 2 units of PRBC and repeat hemoglobin was 9.9. Today Hgb is 9.6. Continue to monitor. Management per primary team. Subjective Patient reports: no new complaints, feels better (Patient admits some abdominal tenderness that she describes as sore.), pain is less, tolerating liquids well, voiding w/o difficulty, no flatus, no bowel movement, afebrile Objective Vital Signs - Last 8 Hours Temp Pulse Resp BP Pulse Ox 11/13/17 11:08 98.7 F 86 17 108/66 94 11/13/17 10:43 18 90 11/13/17 07:21 97.5 F L 73 19 109/67 94 Intake and Output 11/12/17 11/13/17 11/13/17 23:59 07:59 15:59 Intake Total 700 / 700 200 / 200 720 / 720 Output Total 360 / 360 1050 / 1050 650 / 650 Balance 340 / 340 -850 / -850 70 / 70 Intake: IV Fluids 100 / 100 200 / 200 Ofirmev 1,000 mg/100 ml 1,000 100 / 100 mg In 100 ml @ 400 mls/hr IVPB Q8H [facility] Rx#:[id number] Zosyn 3.375 GM In 0.9 % Sodium 100 / 100 100 / 100 Chloride (Mini-Bag +) 100 ML @ 25 mls/hr IVPB Q8HR [facility] Rx#: [id number] Oral 600 / 600 0 / 0 720 / 720 Output: Catheter 300 / 300 900 / 900 650 / 650 Wound Drainage 60 / 60 150 / 150 0 / 0 Right Upper Abdomen 60 / 60 150 / 150 0 / 0 Other: Meal Dinner Clears Percent of Meal Consumed 90% Weight 58.513 kg Patient Weight 11/13/17 23:59 Weight 58.513 kg - General physical appearance well developed, no distress - Eyes PERRL, normal ocular movement - ENT normal mucosa - Neck Neck exam: trachea midline - Respiratory normal expansion, normal respiratory effort, other (Decreased breath sounds in the lower bilateral bases) - Cardiovascular Cardiovascular exam: Present: RRR, no murmurs/rubs/gallops - Abdomen Abdomen: Present: bowel sounds present, soft, distended (Mildly distended but appears to improved compared to yesterday's exam), tender (Minimal tenderness to palpation. Appropriate post operative tenderness.), wound (AYSHA drain with Serosang drainage). Absent: guarding, rebound, rigid - Incision Incision: Present: clean and dry, intact. Absent: draining, purulent - Integumentary no rash - Psychiatric oriented to time, oriented to person, oriented to place - Labs 11/13/17 08:03 11/13/17 08:03 Diabetes panel 11/13/17 Range/Units 08:03 Sodium 140 (136-145) mEq/L Potassium 3.9 (3.5-5.1) mEq/L Chloride 109 H (98-107) mEq/L Carbon Dioxide 26 (23-29) mEq/L BUN 19 (8-23) mg/dL Creatinine 0.88 (0.60-1.20) mg/dL Glucose 92 (70-105) mg/dL Calcium 8.6 (8.6-10.3) mg/dL Calcium panel 11/13/17 Range/Units 08:03 Calcium 8.6 (8.6-10.3) mg/dL Pituitary panel 11/13/17 Range/Units 08:03 Sodium 140 (136-145) mEq/L Potassium 3.9 (3.5-5.1) mEq/L Chloride 109 H (98-107) mEq/L Carbon Dioxide 26 (23-29) mEq/L BUN 19 (8-23) mg/dL Creatinine 0.88 (0.60-1.20) mg/dL Glucose 92 (70-105) mg/dL Calcium 8.6 (8.6-10.3) mg/dL Adrenal panel 11/13/17 Range/Units 08:03 Sodium 140 (136-145) mEq/L Potassium 3.9 (3.5-5.1) mEq/L Chloride 109 H (98-107) mEq/L Carbon Dioxide 26 (23-29) mEq/L BUN 19 (8-23) mg/dL Creatinine 0.88 (0.60-1.20) mg/dL Glucose 92 (70-105) mg/dL Calcium 8.6 (8.6-10.3) mg/dL - VTE Documentation of Mechanical Device: Intermittent pneumatic compression device Consult Discharge Plan - Plan Referrals: Rasheeda Yeh MD [Non-Partnered Physician] - <Chadwick Aguiar - Last Filed: 11/14/17 00:55> Date of Encounter: 11/13/17 Objective Vital Signs - Last 8 Hours Temp Pulse Resp BP Pulse Ox 11/13/17 23:40 99.5 F 97 16 99/62 94 11/13/17 21:04 16 87 11/13/17 18:52 98.9 F 95 16 105/65 92 11/13/17 17:08 99.1 F Intake and Output 11/13/17 11/13/17 11/14/17 15:59 23:59 07:59 Intake Total 720 / 720 690 / 690 Output Total 1140 / 1140 190 / 190 Balance -420 / -420 500 / 500 Intake: IV Fluids 400 / 400 Ofirmev 1,000 mg/100 ml 1,000 200 / 200 mg In 100 ml @ 400 mls/hr IVPB Q8H [facility] Rx#:[id number] Zosyn 3.375 GM In 0.9 % Sodium 200 / 200 Chloride (Mini-Bag +) 100 ML @ 25 mls/hr IVPB Q8HR [facility] Rx#: [id number] Oral 720 / 720 290 / 290 Output: Catheter 1100 / 1100 150 / 150 Wound Drainage 40 / 40 40 / 40 Right Upper Abdomen 40 / 40 40 / 40 Other: Meal Clears Dinner Percent of Meal Consumed 50% - Labs 11/14/17 00:39 11/13/17 08:03 Diabetes panel 11/13/17 Range/Units 08:03 Sodium 140 (136-145) mEq/L Potassium 3.9 (3.5-5.1) mEq/L Chloride 109 H (98-107) mEq/L Carbon Dioxide 26 (23-29) mEq/L BUN 19 (8-23) mg/dL Creatinine 0.88 (0.60-1.20) mg/dL Glucose 92 (70-105) mg/dL Calcium 8.6 (8.6-10.3) mg/dL Calcium panel 11/13/17 Range/Units 08:03 Calcium 8.6 (8.6-10.3) mg/dL Pituitary panel 11/13/17 Range/Units 08:03 Sodium 140 (136-145) mEq/L Potassium 3.9 (3.5-5.1) mEq/L Chloride 109 H (98-107) mEq/L Carbon Dioxide 26 (23-29) mEq/L BUN 19 (8-23) mg/dL Creatinine 0.88 (0.60-1.20) mg/dL Glucose 92 (70-105) mg/dL Calcium 8.6 (8.6-10.3) mg/dL Adrenal panel 11/13/17 Range/Units 08:03 Sodium 140 (136-145) mEq/L Potassium 3.9 (3.5-5.1) mEq/L Chloride 109 H (98-107) mEq/L Carbon Dioxide 26 (23-29) mEq/L BUN 19 (8-23) mg/dL Creatinine 0.88 (0.60-1.20) mg/dL Glucose 92 (70-105) mg/dL Calcium 8.6 (8.6-10.3) mg/dL - Attending Attestation I examined this patient and my medical decision-making was reviewed with the Resident Physician. I agree with the documented findings, disposition and treatment plan as described except to the extent set forth below. I reviewed the above assessment and evaluation with the resident and agree with the above plan. We will contact gastroenterology in the a.m. to discuss about a possible ERCP.
--- NOTE | 2017-11-13 15:17 | Internal Med Progress Note ---
Date of Encounter: 11/13/17 Time of Encounter: 15:15 - Assessment and plan (1) Sepsis Current Visit: Yes Status: Acute Assessment and plan: Secondary to acute cholecystitis s/p laparoscopic to open cholecystectomy Surgery following, recommendations appreciated Continue Zosyn Pain controlled Qualifiers: Sepsis type: sepsis due to unspecified organism Qualified Code(s): A41.9 - Sepsis, unspecified organism (2) Acute cholecystitis Current Visit: Yes Status: Acute Assessment and plan: s/p cholecystectomy 11/11 Doing well - GI consult and ERCP tomorrow for possible open duct of Luschka at common bile duct. (3) Acute blood loss as cause of postoperative anemia Current Visit: Yes Status: Acute Assessment and plan: 2 units PRBC on 11/12 Now H&H stable. Hemodynamically stable (4) History of CVA (cerebrovascular accident) Current Visit: Yes Status: Acute (5) DVT prophylaxis Current Visit: Yes Status: Acute Assessment and plan: SCDs - Subjective Interval history: No acute events. Post-op has minimal soreness noted but otherwise she has no complaints. - Constitutional Vitals: Temp Pulse Resp BP Pulse Ox 98.4 F 91 18 104/65 94 11/13/17 15:04 11/13/17 15:04 11/13/17 15:04 11/13/17 15:04 11/13/17 15:04 General appearance: Present: A&O X 3, no acute distress, answers questions appropriately - Head Head exam: Present: atraumatic, normocephalic - Eye Eye exam: Present: PERRL, conjuntiva pink, sclera anicteric Pupils: Present: PERRL - Neck Neck exam general surgery: Present: supple, trachea midline. Absent: lymphadenopathy - Respiratory Respiratory exam: Present: CTAB. Absent: accessory muscle use, rales, rhonchi, wheezes - Cardiovascular Cardiovascular exam: Present: RRR, +S1, +S2. Absent: diastolic murmur, gallop, rubs, systolic murmur - GI/Abdominal GI/Abdominal exam: Present: normal bowel sounds, soft, tenderness, no peritoneal signs. Absent: distended - Extremities Exam Extremities exam: Present: warm, radial pulses palpable and symmetrical. Absent : calf tenderness, cyanotic, pedal edema Additional comments: Left side with weakness at baseline - Neurological Exam Neurological exam: Present: CN II-XII intact, oriented X3, no focal deficits. Absent: pronater drift, facial droop, speech deficit - Skin Skin exam: Present: dry, intact Internal Medicine: Result - Labs CBC & Chem 7: 11/13/17 08:03 11/13/17 08:03 Labs: Short CBC 11/12/17 11/13/17 Range/Units 15:20 08:03 WBC 13.3 H (4.3-11.1) K/mcL Hgb 9.9 L D 9.6 L (11.5-15.4) g/dL Hct 29.5 L 28.9 L (35.3-44.9) % Plt Count 211 (140-400) K/mcL Neutrophils # 11.4 H (1.6-8.9) K/mcL BMP 11/13/17 08:03 Sodium 140 Potassium 3.9 Chloride 109 H Carbon Dioxide 26 BUN 19 Creatinine 0.88 Glucose 92 Calcium 8.6 - ABG Interpretation ABG results: PT/INR, D-dimer PT 13.8 Seconds (9.4-12.1) H 11/10/17 21:42 - VTE Documentation of Mechanical Device: Intermittent pneumatic compression device Consult Discharge Plan - Plan Referrals: Rasheeda Yeh MD [Non-Partnered Physician] -
[2017-11-13] MEDS: OXYCODONE Oral CONC 10 MG/0.5 ML ORAL.SYG SL PRN ×2 (18:12→22:53)
[2017-11-13] MEDS: Melatonin 3 MG TABLET PO PRN (20:45)
[2017-11-13] MEDS: 0.9 % Sodium Chloride 1,000 ML IVC SCH (22:54)
[2017-11-14] MEDS: Piperacillin/Tazobactam 3.375 GM in 0.9 % Sodium Chloride Mini Bag 100 ML IVPB SCH ×4 (00:36→23:08)
[2017-11-14 00:51] LABS: Basophils % 0.2 %; Eosinophils # 0.1 K/mcL (0.0-0.6); Eosinophils % 0.6 %; Hematocrit 26.1 % (35.3-44.9); Hemoglobin 8.8 g/dL (11.5-15.4); Immature Granulocytes % 0.5 % (0-4); Lymphocytes # 1.5 K/mcL (0.6-4.6); Lymphocytes % 14.9 %; Mean Corpuscular HGB Conc 33.7 g/dL (31.6-35.5); Mean Corpuscular Hemoglobin 29.7 pg (28.0-33.3); Mean Corpuscular Volume 88.2 fL (83.0-100.0); Mean Platelet Volume 9.4 fL (9.4-12.4); Monocytes % 9.8 %; Neutrophils # 7.3 K/mcL (1.6-8.9); Platelet Count 218 K/mcL (140-400); Red Blood Count 2.96 M/mcL (3.82-4.97)
[2017-11-14 01:13] LABS: BUN/Creatinine Ratio 19 (6-26); Blood Urea Nitrogen 16 mg/dL (8-23); Calcium 8.3 mg/dL (8.6-10.3); Carbon Dioxide 24 mEq/L (23-29); Chloride 109 mEq/L (98-107); Glucose 96 mg/dL (70-105); Osmolality,Calculated 287 (280-300); Potassium 3.6 mEq/L (3.5-5.1); Sodium 138 mEq/L (136-145); eGFR For African Americans > 60 (> 60); eGFR For Non-African Americans > 60 (> 60)
[2017-11-14] MEDS: Acetaminophen IV 1,000 MG/100 ML INFUS..BTL IVPB SCH ×3 (04:18→19:57)
[2017-11-14] MEDS: Ipratropium/Albuterol Neb 3 ML IH SCH ×4 (04:32→21:20)
[2017-11-14] MEDS: Gabapentin 300 MG CAPSULE PO SCH ×3 (08:41→20:01)
[2017-11-14] MEDS ORDERED: Saline Nasal Spray 44 ML BOTTLE NS PRN (10:54)
--- NOTE | 2017-11-14 10:59 | General Surgery Progress Note ---
<Génesis Bell Melisa - Last Filed: 11/14/17 10:57> Date of Encounter: 11/14/17 Time of Encounter: 10:30 - Assessment and Plan (1) Acute cholecystitis Current Visit: Yes Status: Acute POD #3 from an open cholecystectomy with Dr. Graham NPO Dr. Barboza consulted with gastroenterology for ERCP with possible stent placement today IV fluids IV antibiotics- Zosyn Continue AYSHA drain X 1 Supportive care and pain control Incentive Spirometer every 1 hour while awake Ambulate hallways TID with assistance PPI daily for GI prophylaxis Repeat am labs- CBC, BMP, Hepatic panel, Lipase (2) History of CVA (cerebrovascular accident) Current Visit: Yes Status: Acute Hold plavix for now for surgical intervention Last dose 11/10/17 (3) Acute blood loss as cause of postoperative anemia Current Visit: Yes Status: Acute Stable Hgb- 9.9>9.6>8.8 Continue to monitor Subjective Patient reports: no new complaints, feels better, still having pain, pain is less, no flatus, no bowel movement, afebrile Objective Vital Signs - Last 8 Hours Temp Pulse Resp BP Pulse Ox 11/14/17 10:09 16 99 11/14/17 07:02 98.7 F 81 15 122/69 99 11/14/17 04:32 16 97 11/14/17 04:16 97.6 F 81 16 109/70 97 Intake and Output 11/13/17 11/14/17 11/14/17 23:59 07:59 15:59 Intake Total 690 / 690 100 / 100 Output Total 190 / 190 700 / 700 Balance 500 / 500 -600 / -600 Intake: IV Fluids 400 / 400 100 / 100 Ofirmev 1,000 mg/100 ml 1,000 200 / 200 100 / 100 mg In 100 ml @ 400 mls/hr IVPB Q8H [facility] Rx#:[id number] Zosyn 3.375 GM In 0.9 % Sodium 200 / 200 Chloride (Mini-Bag +) 100 ML @ 25 mls/hr IVPB Q8HR M[facility]O Rx#: [id number] Oral 290 / 290 0 / 0 Output: Catheter 150 / 150 600 / 600 Wound Drainage 40 / 40 100 / 100 Right Upper Abdomen 40 / 40 100 / 100 Other: Meal Dinner NPO Percent of Meal Consumed 50% Weight 58.513 kg Blood Glucose* 80 Patient Weight 11/14/17 23:59 Weight 58.513 kg - General physical appearance well developed, no distress, chronically ill - Eyes normal ocular movement - ENT normal mucosa, atraumatic, normocephalic - Neck Neck exam: trachea midline - Respiratory normal respiratory effort, clear to auscultation, other (diminished bibasilar bases) - Cardiovascular Cardiovascular exam: Present: RRR - Abdomen Abdomen: Present: bowel sounds present, soft, tender (expected post-operative tenderness), wound (AYSHA drain to bulb suction with serousang. drainage noted ( 100ml since midnight)) - Incision Incision: Present: clean and dry, intact - Musculoskeletal other (left sided weakness is chronic from a previous CVA) - Psychiatric oriented to time, oriented to person, oriented to place, speech is normal, memory intact - Labs 11/14/17 00:39 11/14/17 00:39 Diabetes panel 11/14/17 Range/Units 00:39 Sodium 138 (136-145) mEq/L Potassium 3.6 (3.5-5.1) mEq/L Chloride 109 H (98-107) mEq/L Carbon Dioxide 24 (23-29) mEq/L BUN 16 (8-23) mg/dL Creatinine 0.85 (0.60-1.20) mg/dL Glucose 96 (70-105) mg/dL Calcium 8.3 L (8.6-10.3) mg/dL Calcium panel 11/14/17 Range/Units 00:39 Calcium 8.3 L (8.6-10.3) mg/dL Pituitary panel 11/14/17 Range/Units 00:39 Sodium 138 (136-145) mEq/L Potassium 3.6 (3.5-5.1) mEq/L Chloride 109 H (98-107) mEq/L Carbon Dioxide 24 (23-29) mEq/L BUN 16 (8-23) mg/dL Creatinine 0.85 (0.60-1.20) mg/dL Glucose 96 (70-105) mg/dL Calcium 8.3 L (8.6-10.3) mg/dL Adrenal panel 11/14/17 Range/Units 00:39 Sodium 138 (136-145) mEq/L Potassium 3.6 (3.5-5.1) mEq/L Chloride 109 H (98-107) mEq/L Carbon Dioxide 24 (23-29) mEq/L BUN 16 (8-23) mg/dL Creatinine 0.85 (0.60-1.20) mg/dL Glucose 96 (70-105) mg/dL Calcium 8.3 L (8.6-10.3) mg/dL - VTE Documentation of Mechanical Device: Intermittent pneumatic compression device Consult Discharge Plan - Plan Referrals: Rasheeda Yeh MD [Non-Partnered Physician] - - Attending Attestation For this encounter, I have reviewed the TRACTOR TRAILER MOVING VAN DRIVER or PA documentation, treatment plan, and medical decision making; and I have had face to face time with this patient. <Chadwick Aguiar - Last Filed: 11/15/17 08:15> Date of Encounter: 11/14/17 Objective Vital Signs - Last 8 Hours Temp Pulse Resp BP Pulse Ox 11/15/17 06:55 98.2 F 71 16 138/77 92 11/15/17 04:15 17 92 11/15/17 03:30 98.3 F 78 18 130/74 92 Intake and Output 11/14/17 11/15/17 11/15/17 23:59 07:59 15:59 Intake Total 1200 / 1200 440 / 440 Output Total 230 / 230 480 / 480 Balance 970 / 970 -40 / -40 Intake: IV Fluids 1200 / 1200 200 / 200 0.9 % Sodium Chloride 1,000 ML 1000 / 1000 @ 100 mls/hr IVC .Q10H [facility] Rx#: [id number] Ofirmev 1,000 mg/100 ml 1,000 100 / 100 100 / 100 mg In 100 ml @ 400 mls/hr IVPB Q8H [facility] Rx#:[id number] Zosyn 3.375 GM In 0.9 % Sodium 100 / 100 100 / 100 Chloride (Mini-Bag +) 100 ML @ 25 mls/hr IVPB Q8HR [facility] Rx#: [id number] Oral 0 / 0 240 / 240 Output: Catheter 150 / 150 400 / 400 Wound Drainage 80 / 80 80 / 80 Right Upper Abdomen 80 / 80 80 / 80 Other: Meal npo Weight 58.9 kg Blood Glucose* 106 Patient Weight 11/15/17 23:59 Weight 58.9 kg - Labs 11/15/17 05:08 11/15/17 05:08 Diabetes panel 11/15/17 11/15/17 Range/Units 05:08 05:08 Sodium 140 (136-145) mEq/L Potassium 3.7 (3.5-5.1) mEq/L Chloride 110 H (98-107) mEq/L Carbon Dioxide 21 L (23-29) mEq/L BUN 13 (8-23) mg/dL Creatinine 0.76 (0.60-1.20) mg/dL Glucose 76 (70-105) mg/dL Calcium 8.1 L (8.6-10.3) mg/dL AST 31 (13-39) Units/L ALT 37 (7-52) Units/L Alkaline Phosphatase 59 (34-104) Units/L Albumin 2.6 L (3.5-5.7) g/dL Calcium panel 11/15/17 11/15/17 Range/Units 05:08 05:08 Calcium 8.1 L (8.6-10.3) mg/dL Albumin 2.6 L (3.5-5.7) g/dL Pituitary panel 11/15/17 Range/Units 05:08 Sodium 140 (136-145) mEq/L Potassium 3.7 (3.5-5.1) mEq/L Chloride 110 H (98-107) mEq/L Carbon Dioxide 21 L (23-29) mEq/L BUN 13 (8-23) mg/dL Creatinine 0.76 (0.60-1.20) mg/dL Glucose 76 (70-105) mg/dL Calcium 8.1 L (8.6-10.3) mg/dL Adrenal panel 11/15/17 11/15/17 Range/Units 05:08 05:08 Sodium 140 (136-145) mEq/L Potassium 3.7 (3.5-5.1) mEq/L Chloride 110 H (98-107) mEq/L Carbon Dioxide 21 L (23-29) mEq/L BUN 13 (8-23) mg/dL Creatinine 0.76 (0.60-1.20) mg/dL Glucose 76 (70-105) mg/dL Calcium 8.1 L (8.6-10.3) mg/dL Total Bilirubin 0.4 (0.3-1.0) mg/dL AST 31 (13-39) Units/L ALT 37 (7-52) Units/L Alkaline Phosphatase 59 (34-104) Units/L Albumin 2.6 L (3.5-5.7) g/dL - Attending Attestation I reviewed the above assessment and evaluation and agree with the above- mentioned plan.
--- NOTE | 2017-11-14 11:51 | Gastroenterology Consult Note ---
<TripnoahVibha barrios - Last Filed: 11/14/17 13:00> Date of Encounter: 11/14/17 Time of Encounter: 11:41 - Assessment and plan (1) Acute cholecystitis Current Visit: Yes Status: Acute Assessment and plan: 77-year-old female status post open cholecystectomy, postoperative day #3. -GI consult for possible open duct of Luschka at the common bile duct for potential ERCP. -We will proceed to ERCP this afternoon with Dr. Barboza. -Elevated transaminases likely due to biliary injury, and less likely hepatitis. -Patient does report a blood transfusion prior to 1991. We will therefore obtain a hepatitis profile -We will get RAUL as well to rule out autoimmune hepatitis. (2) Anemia Current Visit: Yes Status: Acute Assessment and plan: Hemoglobin 10.2 on arrival. -Patient states she has history of chronic anemia. -No signs of active bleeding. -We will obtain medical records from her primary care provider. Qualifiers: Anemia type: unspecified type Qualified Code(s): D64.9 - Anemia, unspecified - Time Spent With Patient Total time spent is greater than 50% in coordination of care (as documented) at patient's floor/unit and/or counseling patient: GI History of Present Illness - Data of Consult Patient: new to practice Consult date: 11/14/17 Requesting Physician: Maria Del Carmen Jeong MD - Consult Narrative Reason for consult: Patiwnt with 1.2mm transected duct of lushka off proximal bile duct/ERCP, s History of present illness: Ms. Hernández is a 77 year old female with past medical history of hypertension, CVA with left-sided residual hemiparesis, osteoarthritis, and spinal stenosis who presented to [facility] emergency for abdominal pain, nausea, and vomiting on 11/10/2017. CT of the abdomen obtained at that time revealed acute cholecystitis. Patient was found to be febrile with leukocytosis. She was started on fluid resuscitation and antibiotics. Patient was subsequently transferred to our general surgical department here at [facility]. Patient underwent a laparoscopic cholecystectomy which was converted to an open cholecystectomy on 11/11/2017. During the operation, a transection of the duct of lushka that was noted. Gastroenterology was consulted that at that time for potential ERCP, stent placement, and sphincterotomy. Patient's hospital course has been complicated by gram-positive blood cultures. She is currently receiving Zosyn, has a AYSHA drain in place with sustained serosanguineous output, and has received a total of 3 units of packed red blood cells and 1 unit of fresh frozen plasma. Per patient, her primary care provider is Dr. Yeh in [facility]. She states she has chronic anemia at baseline. This morning, patient is resting comfortably. She states her only complaint is fatigue and abdominal pain, which she states is well controlled. She denies nausea, vomiting, diarrhea, dysuria, hematuria, fever, chills, or night sweats. She denies melena, hematochezia, or hematemesis. 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 Colonoscopy: 18 years ago Past Med Surg Social Fam HX - Past Medical History Attestation: Yes The following information was validated with the patient. Source: patient, old records reviewed Medical history: arthritis, CVA (residual left sided weakness), hypertension, osteoporosis, other (spinal stenosis) Psychiatric history: no psych history - Past Surgical History Surgical History: appendectomy, orthopedic, other (spine surgery for removal of a bone spur), other (colonoscopy approximately 10 years ago (normal exam), tubal ligation) - Social History Smoking Status: Former smoker Alcohol use: none Drug use: none - Family History Father Living Status: Hx Family Respiratory Disorders: Yes (COPD) Mother Living Status: - Gastrointestinal Gastrointestinal: Present: abdominal pain. Absent: change in bowel habits, coffee ground emesis, diarrhea, heartburn, hematochezia, melena, nausea, vomiting - Constitutional Constitutional: fatigue, no fever(s), no weight gain, no weight loss - EENT Eyes: as per HPI - Cardiovascular Cardiovascular ROS: Absent: chest pain, irregular heart rhythm, palpitations - Respiratory Respiratory IM: Absent: cough, dyspnea, hemoptysis - Genitourinary Genitourinary: Absent: change in color, Urinary frequency - Neurological ROS Neurological GI: Present: frequent falls. Absent: confusion, dizziness, tremor(s), weakness - Hematologic/Lymphatic Hematologic/Lymphatic pediatric: Absent: easy bleeding - Musculoskeletal Musculoskeletal ROS GI: Present: back pain - Integumentary Integumentary GI: Absent: jaundice, pruritis, rash - Constitutional Vitals: Temp Pulse Resp BP Pulse Ox 98.1 F 85 20 122/70 94 11/14/17 11:26 11/14/17 11:26 11/14/17 11:26 11/14/17 11:26 11/14/17 11:26 General appearance: Present: cooperative, A&O X 3, no acute distress, answers questions appropriately - Head Head exam: Present: atraumatic, normal inspection - Eye Eye exam: Present: EOMI, normal appearance, sclera anicteric - ENT ENT exam: Present: mucous membranes dry - Neck Neck exam general surgery: Present: trachea midline - Respiratory Respiratory exam: Present: CTAB - Cardiovascular Cardiovascular exam: Present: RRR, +S1, +S2 - GI/Abdominal GI/Abdominal exam: Present: hypoactive bowel sounds, normal bowel sounds, soft, tenderness (perioperative tenderness around incision), no peritoneal signs. Absent: firm, guarding Additional comments: Incision c/d/i, AYSHA drain in place with approx 50 mls of serosanguinous output. - Expanded GI/Abdominal Exam GI/Abdominal exam expanded: Absent: ascites, Rovsing's sign - Extremities Exam Extremities exam: Present: radial pulses palpable and symmetrical. Absent: pedal edema - Neurological Exam Neurological exam: Present: motor sensory deficit (left sided spastic hemiparesis), oriented X3 - Skin Skin exam: Present: dry, intact, warm Results - Labs CBC & Chem 7: 11/14/17 00:39 11/14/17 00:39 Labs: Last Result Calcium 8.3 mg/dL (8.6-10.3) L 11/14/17 00:39 Entire Visit Hgb 8.8 g/dL (11.5-15.4) L 11/14/17 00:39 Hct 26.1 % (35.3-44.9) L 11/14/17 00:39 PT 13.8 Seconds (9.4-12.1) H 11/10/17 21:42 Total Bilirubin 0.8 mg/dL (0.3-1.0) 11/12/17 01:48 AST 111 Units/L (13-39) H 11/12/17 01:48 ALT 77 Units/L (7-52) H 11/12/17 01:48 Lipase 14 Units/L (11-82) 11/10/17 21:42 E. coli (PCR) Not Detected (Not Detect) 11/10/17 21:42 - ABG ABG results: PT/INR, D-dimer PT 13.8 Seconds (9.4-12.1) H 11/10/17 21:42 Consult Discharge Plan - Plan Referrals: Rasheeda Yeh MD [Non-Partnered Physician] - <RuiZiggyEnzo - Last Filed: 11/14/17 15:57> Date of Encounter: 11/14/17 - Time Spent With Patient Total time spent is greater than 50% in coordination of care (as documented) at patient's floor/unit and/or counseling patient: GI History of Present Illness - Data of Consult Requesting Physician: Maria Del Carmen Jeong MD - Consult Narrative History of present illness: Ms. Hernández is a 77 year old female - Constitutional Vitals: Temp Pulse Resp BP Pulse Ox 97.9 F 74 16 156/79 96 11/14/17 15:40 11/14/17 15:40 11/14/17 15:40 11/14/17 15:40 11/14/17 15:40 Results - Labs CBC & Chem 7: 11/14/17 00:39 11/14/17 00:39 Labs: Last Result Calcium 8.3 mg/dL (8.6-10.3) L 11/14/17 00:39 Entire Visit Hgb 8.8 g/dL (11.5-15.4) L 11/14/17 00:39 Hct 26.1 % (35.3-44.9) L 11/14/17 00:39 PT 13.8 Seconds (9.4-12.1) H 11/10/17 21:42 Total Bilirubin 0.8 mg/dL (0.3-1.0) 11/12/17 01:48 AST 111 Units/L (13-39) H 11/12/17 01:48 ALT 77 Units/L (7-52) H 11/12/17 01:48 Lipase 14 Units/L (11-82) 11/10/17 21:42 E. coli (PCR) Not Detected (Not Detect) 11/10/17 21:42 - ABG ABG results: PT/INR, D-dimer PT 13.8 Seconds (9.4-12.1) H 11/10/17 21:42 - Impressions Impressions Cath/Invasive Procedure 11/14/17 13:50 IMPRESSION: No evidence of acute bile duct leak. Common bile duct stent placed. D/ / Dayton Mireles / Dayton Mireles Interpreting Provider: Dayton Mireles - Attending Attestation Examined and interviewed Ms Hernández, reviewed patient's scans, operative report of cholecystectomy, and clinical status and labs. Patient appears to have a biliary leak, possible choledocholithiasis, agree with proceeding with ERCP, stenting of CBD. More once ERCP performed. I examined this patient and my medical decision-making was reviewed with the Resident Physician. I agree with the documented findings, disposition and treatment plan as described except to the extent set forth below.
[2017-11-14] MEDS: 0.9 % Sodium Chloride 1,000 ML IVC SCH ×2 (12:08→23:09)
[2017-11-14] MEDS ORDERED: *HR* Propofol 200 MG/20 ML VIAL IVP ONE (12:34)
[2017-11-14] MEDS ORDERED: *HR* FentaNYL (PF) 100 MCG/2 ML VIAL ONE (12:34)
[2017-11-14] MEDS ORDERED: *HR* Midazolam HCl 2 MG/2 ML VIAL ONE (12:35)
[2017-11-14] MEDS ORDERED: *HR* Rocuronium Bromide 50 MG/5 ML VIAL ONE (12:35)
[2017-11-14] MEDS ORDERED: Dexamethasone 4 MG/ML VIAL ONE (12:35)
[2017-11-14] MEDS ORDERED: Lidocaine -MPF 2% 2 ML VIAL ONE (12:35)
[2017-11-14] MEDS ORDERED: *HR* Succinylcholine 200 MG/10 ML VIAL IVP ONE (12:35)
[2017-11-14] MEDS ORDERED: Ondansetron 4 MG/2 ML VIAL ONE (12:35)
[2017-11-14] MEDS ORDERED: Lidocaine -MPF 4% 5 ML AMPUL ONE (12:39)
--- NOTE | 2017-11-14 12:57 | Anesthesia Evaluation PreOp ---
Date of Encounter: 11/14/17 Time of Encounter: 12:55 - Past History Planned Operation: ERCP Cardiac History: HTN, Hyperlipidemia Pulmonary History: Former smoker (quit x 30yrs) SCIENTIFIC LINGUIST History: CVA (left residual weakness) Other Medical History: Denies Any Significant HX Anesthesia History: No Prior Anesthetic Complications, Past Anesthesia (lap jasper) Alcohol Use: none Drug use: none Medications and Allergies Citalopram Hydrobromide [Citalopram HBr] 10 mg PO DAILY 11/11/17 [History] Clopidogrel [Plavix] 75 mg PO DAILY 11/11/17 [History] Gabapentin [Neurontin] 300 mg PO TID 11/11/17 [History] HYDROcodone/Acet 5/325 mg [Dunlow 5-325 mg] 1 tab PO TID PRN 11/11/17 [History] Lisinopril [Zestril] 10 mg PO DAILY 11/11/17 [History] Polyethylene Glycol 3350 [MiraLAX bowel prep] 17 gm PO Q48H 11/11/17 [History] Rosuvastatin Calcium [Crestor] 5 mg PO HS 11/11/17 [History] 3 Allergy/AdvReac Type Severity Reaction Status Date / Time prednisone AdvReac See Verified 11/11/17 09:35 Comments - Meds/Allergy Pre-op Review Medications Reviewed: Yes Allergies Reviewed: Yes Beta Blockers on Current Med List: No Anesthesia Results - Labs 11/14/17 00:39 11/14/17 00:39 - Imaging EKG: report reviewed (SINUS RHYTHM) Anesthesia Exam Selected Entries 11/14/17 11:26 Temperature 98.1 F Pulse Rate 85 Respiratory Rate 20 Blood Pressure 122/70 O2 Sat by Pulse Oximetry 94 Oxygen Flow Rate (LPM) 2 Oxygen Delivery Method Nasal Cannula Weight: 58.5kg NPO (# of Hours): 8 - HEENT Pupil (Motor): EOMI Mallampati: II Teeth: Edentulous Oral Opening: Greater than 3 - SCIENTIFIC LINGUIST LOC: Oriented SCIENTIFIC LINGUIST Motor: Normal RUE, Normal RLE, Normal Face, Deficit LUE, Deficit LLE SCIENTIFIC LINGUIST Sensory: Normal: RUE, RLE, Face, Deficit: LUE, LLE - Cardiac Rhythm: Regular Murmur: None - Pulmonary Breath Sounds: bilateral Clear Respiratory Effort: Symmetrical Anesthesia Assess/Plan ASA Score: 3 Modified Lisa Scale for Level of Consciousness: Cooperative, oriented, and tranquil Anesthetic Plan: General Monitoring Plan: Standard Monitors Recovery Plan: PACU (agrees to GA)
[2017-11-14] MEDS ORDERED: Indomethacin 50 MG SUPP.RECT RC ONE (13:03)
[2017-11-14] MEDS ORDERED: *HR* Promethazine 25 MG/ML VIAL IVP PRN (14:28)
[2017-11-14] MEDS ORDERED: *HR* OxyCODONE Immed Rel 5 MG TABLET PO PRN (14:28)
--- NOTE | 2017-11-14 15:32 | Anesthesia Evaluation Post Op ---
Date of Encounter: 11/14/17 Time of Encounter: 15:31 - Vital Signs Vital Signs: Selected Entries 11/14/17 15:30 Temperature 97.9 F Pulse Rate 74 Respiratory Rate 16 Blood Pressure 153/80 O2 Sat by Pulse Oximetry 97 Oxygen Flow Rate (LPM) 2 - Lungs Lungs: Clear Ascult./Percussion - Airway Airway: Non-obstructed - Cardiovascular Regular Rate - Mental Status Mental Status: Alert & Oriented, Answers Appropriately - Pain Pain Scale: 0 Pain Scale used: Numeric (1 - 10) - Nausea Vomiting Nausea Vomiting: Not Present - Hydration Hydration: Tolerates oral liquids (took pain med with sip of water), Ice chips, Has not voided - Discharge PostOp Status: Transfer Patient to floor
--- NOTE | 2017-11-14 17:14 | Procedure Note ---
Date of procedure: 11/14/17 Pre-op diagnosis: bile leak Procedure: ERCP done. 2 stones about 5-6 mm in size each removed from the CBD. Sphincterotomy performed and a CBD stent placed. Also a pancreatic duct stent placed. No obvious leak seen ReC; Clear Liquid advance as tolerated Repeat ERCP with stent removal in 6-8 week Was there an assistant professor of psychology present: No Estimated blood loss (cc): 0 IV fluids (cc): 0 Urine output (cc): 0 Specimen: none Pathology: none sent
--- NOTE | 2017-11-14 18:11 | Internal Med Progress Note ---
Date of Encounter: 11/14/17 Time of Encounter: 18:08 - Assessment and plan (1) Sepsis Current Visit: Yes Status: Acute Assessment and plan: Secondary to acute cholecystitis s/p laparoscopic to open cholecystectomy Surgery following, recommendations appreciated Continue Zosyn Pain controlled + Francheska epidermidis in 1 of 2 blood cultures, contaminate. No coverage for this needed. Qualifiers: Sepsis type: sepsis due to unspecified organism Qualified Code(s): A41.9 - Sepsis, unspecified organism (2) Acute cholecystitis Current Visit: Yes Status: Acute Assessment and plan: s/p cholecystectomy 11/11 s/p ERCP today with stone extraction Doing well, on Zosyn Advance diet as tolerated (3) Acute blood loss as cause of postoperative anemia Current Visit: Yes Status: Acute Assessment and plan: 2 units PRBC on 11/12 Now H&H stable. Hemodynamically stable (4) History of CVA (cerebrovascular accident) Current Visit: Yes Status: Acute Assessment and plan: Plavix held, will resume if no further surgical interventions needed. (5) DVT prophylaxis Current Visit: Yes Status: Acute Assessment and plan: SCDs - Subjective Interval history: Patient returned from ERCP tolerated without issue. Patient tired requests to be left alone. - Constitutional Vitals: Temp Pulse Resp BP Pulse Ox 97.7 F 77 18 148/75 96 11/14/17 15:50 11/14/17 15:50 11/14/17 16:32 11/14/17 15:50 11/14/17 16:32 General appearance: Present: A&O X 3, no acute distress, answers questions appropriately Exam: - Head Head exam: Present: atraumatic, normocephalic - Eye Eye exam: Present: PERRL, conjuntiva pink, sclera anicteric Pupils: Present: PERRL - Neck Neck exam general surgery: Present: supple, trachea midline. Absent: lymphadenopathy - Respiratory Respiratory exam: Present: CTAB. Absent: accessory muscle use, rales, rhonchi, wheezes - Cardiovascular Cardiovascular exam: Present: RRR, +S1, +S2. Absent: diastolic murmur, gallop, rubs, systolic murmur - GI/Abdominal GI/Abdominal exam: Present: normal bowel sounds, soft, tenderness, no peritoneal signs. Absent: distended - Extremities Exam Extremities exam: Present: warm, radial pulses palpable and symmetrical. Absent : calf tenderness, cyanotic, pedal edema Additional comments: Left side with weakness at baseline - Neurological Exam Neurological exam: Present: CN II-XII intact, oriented X3, no focal deficits. Absent: pronater drift, facial droop, speech deficit - Skin Skin exam: Present: dry, intact Internal Medicine: Result - Labs CBC & Chem 7: 11/14/17 00:39 11/14/17 00:39 Labs: Short CBC 11/14/17 Range/Units 00:39 WBC 9.9 (4.3-11.1) K/mcL Hgb 8.8 L (11.5-15.4) g/dL Hct 26.1 L (35.3-44.9) % Plt Count 218 (140-400) K/mcL Neutrophils # 7.3 (1.6-8.9) K/mcL BMP 11/14/17 00:39 Sodium 138 Potassium 3.6 Chloride 109 H Carbon Dioxide 24 BUN 16 Creatinine 0.85 Glucose 96 Calcium 8.3 L - ABG Interpretation ABG results: PT/INR, D-dimer PT 13.8 Seconds (9.4-12.1) H 11/10/17 21:42 - Impressions Impressions Cath/Invasive Procedure 11/14/17 13:50 IMPRESSION: No evidence of acute bile duct leak. Common bile duct stent placed. D/ / Dayton Mireles / Dayton Mireles Interpreting Provider: Dayton Mireles - VTE Documentation of Mechanical Device: Intermittent pneumatic compression device Consult Discharge Plan - Plan Referrals: Rasheeda Yeh MD [Non-Partnered Physician] -
[2017-11-14 20:21] LABS: Hepatitis A Antibody IgM Nonreactive (Nonreactive); Hepatitis B Core IgM Nonreactive (Nonreactive); Hepatitis B Surface Antigen Nonreactive (Nonreactive); Hepatitis C Virus Antibody Nonreactive (Nonreactive)
[2017-11-15] MEDS: Acetaminophen IV 1,000 MG/100 ML INFUS..BTL IVPB SCH ×3 (04:00→20:30)
[2017-11-15] MEDS: Ipratropium/Albuterol Neb 3 ML IH SCH ×4 (04:15→21:13)
[2017-11-15 05:52] LABS: Basophils % 0.4 %; Eosinophils # 0.1 K/mcL (0.0-0.6); Eosinophils % 1.5 %; Hematocrit 29.5 % (35.3-44.9); Hemoglobin 9.6 g/dL (11.5-15.4); Immature Granulocytes % 1.1 % (0-4); Lymphocytes # 0.9 K/mcL (0.6-4.6); Lymphocytes % 10.1 %; Mean Corpuscular HGB Conc 32.5 g/dL (31.6-35.5); Mean Corpuscular Hemoglobin 29.4 pg (28.0-33.3); Mean Corpuscular Volume 90.2 fL (83.0-100.0); Mean Platelet Volume 9.3 fL (9.4-12.4); Monocytes # 0.8 K/mcL (0.0-1.3); Monocytes % 8.3 %; Neutrophils # 7.3 K/mcL (1.6-8.9); Platelet Count 231 K/mcL (140-400); Red Blood Count 3.27 M/mcL (3.82-4.97); Red Cell Distribution Width 13.9 % (11.5-14.5); Segmented Neutrophils % 78.6 %
[2017-11-15 06:09] LABS: Albumin 2.6 g/dL (3.5-5.7); Bilirubin,Direct 0.2 mg/dL (0.0-0.2); Bilirubin,Indirect 0.2 mg/dL (0.0-1.2); Bilirubin,Total 0.4 mg/dL (0.3-1.0); Globulin 2.7 g/dL (2.4-3.5); Total Protein 5.3 g/dL (6.4-8.9)
[2017-11-15 06:21] LABS: BUN/Creatinine Ratio 17 (6-26); Blood Urea Nitrogen 13 mg/dL (8-23); Calcium 8.1 mg/dL (8.6-10.3); Carbon Dioxide 21 mEq/L (23-29); Chloride 110 mEq/L (98-107); Glucose 76 mg/dL (70-105); Osmolality,Calculated 289 (280-300); Potassium 3.7 mEq/L (3.5-5.1); Sodium 140 mEq/L (136-145); eGFR For African Americans > 60 (> 60); eGFR For Non-African Americans > 60 (> 60)
[2017-11-15] MEDS: Piperacillin/Tazobactam 3.375 GM in 0.9 % Sodium Chloride Mini Bag 100 ML IVPB SCH ×2 (08:03→18:42)
[2017-11-15] MEDS: Gabapentin 300 MG CAPSULE PO SCH ×3 (08:04→20:30)
--- NOTE | 2017-11-15 09:21 | Internal Med Progress Note ---
Date of Encounter: 11/15/17 Time of Encounter: 08:45 - Assessment and plan (1) Sepsis Current Visit: Yes Status: Acute Assessment and plan: Due to acute cholecystitis status post laparoscopic cholecystectomy, ERCP with stone retrieval and stent placement. Clinically improving. Tolerating clear liquid diet well. Overall feels very weak. Awaiting placement to skilled rehabilitation. Continue current antibiotics. Surgery following. Qualifiers: Sepsis type: sepsis due to unspecified organism Qualified Code(s): A41.9 - Sepsis, unspecified organism (2) Acute cholecystitis Current Visit: Yes Status: Acute Assessment and plan: Status post laparoscopic cholecystectomy. (3) History of CVA (cerebrovascular accident) Current Visit: Yes Status: Chronic Assessment and plan: Will discuss with surgery about resuming Plavix at this time. (4) Acute blood loss as cause of postoperative anemia Current Visit: Yes Status: Acute Assessment and plan: Hemoglobin levels remained stable posttransfusion (5) DVT prophylaxis Current Visit: Yes Status: Acute Assessment and plan: With SCDs - Time Spent With Patient Total time spent is greater than 50% in coordination of care (as documented) at patient's floor/unit and/or counseling patient: - Subjective Interval history: Doing better overall. Feels generally weak. Has not been ambulating on her own in the hospital. PTOT consult completed. Recommend placement to skilled rehabilitation. - Constitutional Vitals: Temp Pulse Resp BP Pulse Ox 98.2 F 71 16 138/77 92 11/15/17 06:55 11/15/17 06:55 11/15/17 06:55 11/15/17 06:55 11/15/17 06:55 General appearance: Present: A&O X 3, no acute distress, answers questions appropriately - Respiratory Respiratory exam: Present: CTAB. Absent: accessory muscle use, rales, rhonchi, wheezes - Cardiovascular Cardiovascular exam: Present: RRR, +S1, +S2. Absent: diastolic murmur, gallop, rubs, systolic murmur - GI/Abdominal GI/Abdominal exam: Present: normal bowel sounds, soft, tenderness (Mild right upper quadrant), no peritoneal signs. Absent: distended - Extremities Exam Extremities exam: Present: warm, radial pulses palpable and symmetrical. Absent : calf tenderness, cyanotic, pedal edema - Neurological Exam Neurological exam: Present: CN II-XII intact, oriented X3, no focal deficits. Absent: facial droop, speech deficit - Skin Skin exam: Present: dry, intact Internal Medicine: Result - Labs CBC & Chem 7: 11/15/17 05:08 11/15/17 05:08 Labs: Short CBC 11/15/17 Range/Units 05:08 WBC 9.2 (4.3-11.1) K/mcL Hgb 9.6 L (11.5-15.4) g/dL Hct 29.5 L (35.3-44.9) % Plt Count 231 (140-400) K/mcL Neutrophils # 7.3 (1.6-8.9) K/mcL BMP 11/15/17 05:08 Sodium 140 Potassium 3.7 Chloride 110 H Carbon Dioxide 21 L BUN 13 Creatinine 0.76 Glucose 76 Calcium 8.1 L Liver Function 11/15/17 Range/Units 05:08 Total Bilirubin 0.4 (0.3-1.0) mg/dL Direct Bilirubin 0.2 (0.0-0.2) mg/dL AST 31 (13-39) Units/L ALT 37 (7-52) Units/L Alkaline Phosphatase 59 (34-104) Units/L Albumin 2.6 L (3.5-5.7) g/dL - ABG Interpretation ABG results: PT/INR, D-dimer PT 13.8 Seconds (9.4-12.1) H 11/10/17 21:42 - Impressions Impressions Cath/Invasive Procedure 11/14/17 13:50 IMPRESSION: No evidence of acute bile duct leak. Common bile duct stent placed. D/ / Dayton Mireles / Dayton Mireles Interpreting Provider: Dayton Mireles - VTE Documentation of Mechanical Device: Intermittent pneumatic compression device Consult Discharge Plan - Plan Referrals: Rasheeda Yeh MD [Non-Partnered Physician] -
--- NOTE | 2017-11-15 10:24 | General Surgery Progress Note ---
<Parveen Samuel - Last Filed: 11/15/17 10:21> Date of Encounter: 11/15/17 Time of Encounter: 09:30 - Assessment and Plan (1) Acute cholecystitis Current Visit: Yes Status: Acute POD #4- Laparoscopic to open cholecystectomy by Dr. Graham. Possible open duct of Luschka at the common bile duct was observed. s/p ERCP with Dr. Barboza on 11/14/17. 2 stones about 5-6 mm in size each removed from the CBD. Sphincterotomy performed and a CBD stent placed. Also a pancreatic duct stent placed. Plan: Advanced as tolerated. IV fluids continue IV antibiotics- Zosyn Supportive care and pain control Incentive spirometer every 1 hour while awake GI prophylaxis Out of bed to chair and ambulate hallways 3 times a day with assistance surgery will sign off at this time. Thank you for allowing surgery to participate in this patient's care. (2) Status post cholecystectomy Current Visit: Yes Status: Acute POD #4- Laparoscopic to open cholecystectomy by Dr. Graham. Possible open duct of Luschka at the common bile duct was observed. See plan as above (3) Acute blood loss as cause of postoperative anemia Current Visit: Yes Status: Acute Hemoglobin went from 9.5 to 7.4. Patient's was transfuse with 2 units of PRBC and repeat hemoglobin was 9.9. Today Hgb is 9.6. Continue to monitor. Management per primary team. Subjective Patient reports: no new complaints, feels better, pain is less (Patient admits some mild soreness in her abdomen. She denies any new pain including chest pain , shortness of breath, difficulty breathing, and headaches.), tolerating liquids well (Patient is tolerating liquid diet without any nausea, vomiting, or difficulty. She admits that her appetite has not fully returned.), flatus ( Patient admits passing minimal flatus but denies any bowel movements.), no bowel movement, afebrile Objective Vital Signs - Last 8 Hours Temp Pulse Resp BP Pulse Ox 11/15/17 06:55 98.2 F 71 16 138/77 92 11/15/17 04:15 17 92 11/15/17 03:30 98.3 F 78 18 130/74 92 Intake and Output 11/14/17 11/15/17 11/15/17 23:59 07:59 15:59 Intake Total 1200 / 1200 440 / 440 Output Total 230 / 230 480 / 480 Balance 970 / 970 -40 / -40 Intake: IV Fluids 1200 / 1200 200 / 200 0.9 % Sodium Chloride 1,000 ML 1000 / 1000 @ 100 mls/hr IVC .Q10H MANDO Rx#: [id number] Ofirmev 1,000 mg/100 ml 1,000 100 / 100 100 / 100 mg In 100 ml @ 400 mls/hr IVPB Q8H MANDO Rx#:[id number] Zosyn 3.375 GM In 0.9 % Sodium 100 / 100 100 / 100 Chloride (Mini-Bag +) 100 ML @ 25 mls/hr IVPB Q8HR MANDO Rx#: [id number] Oral 0 / 0 240 / 240 Output: Catheter 150 / 150 400 / 400 Wound Drainage 80 / 80 80 / 80 Right Upper Abdomen 80 / 80 80 / 80 Other: Meal npo Weight 58.9 kg Blood Glucose* 106 Patient Weight 11/15/17 23:59 Weight 58.9 kg - General physical appearance well developed, no distress - Eyes PERRL, normal ocular movement - ENT dry mucosa - Neck Neck exam: trachea midline - Respiratory normal respiratory effort, clear to auscultation - Cardiovascular Cardiovascular exam: Present: RRR, no murmurs/rubs/gallops - Abdomen Abdomen: Present: bowel sounds present (Bowel sounds present in all 4 quadrants. ), soft, tender (Minimal tenderness to palpation. Expected postoperative tenderness), wound (AYSHA drain to bulb suction with serousangious drainage noted) . Absent: guarding, rebound, rigid Abdominal Tenderness: RUQ - Incision Incision: Present: clean and dry, intact. Absent: draining, purulent - Integumentary no rash - Psychiatric oriented to time, oriented to person, oriented to place - Labs 11/15/17 05:08 11/15/17 05:08 Diabetes panel 11/15/17 11/15/17 Range/Units 05:08 05:08 Sodium 140 (136-145) mEq/L Potassium 3.7 (3.5-5.1) mEq/L Chloride 110 H (98-107) mEq/L Carbon Dioxide 21 L (23-29) mEq/L BUN 13 (8-23) mg/dL Creatinine 0.76 (0.60-1.20) mg/dL Glucose 76 (70-105) mg/dL Calcium 8.1 L (8.6-10.3) mg/dL AST 31 (13-39) Units/L ALT 37 (7-52) Units/L Alkaline Phosphatase 59 (34-104) Units/L Albumin 2.6 L (3.5-5.7) g/dL Calcium panel 11/15/17 11/15/17 Range/Units 05:08 05:08 Calcium 8.1 L (8.6-10.3) mg/dL Albumin 2.6 L (3.5-5.7) g/dL Pituitary panel 11/15/17 Range/Units 05:08 Sodium 140 (136-145) mEq/L Potassium 3.7 (3.5-5.1) mEq/L Chloride 110 H (98-107) mEq/L Carbon Dioxide 21 L (23-29) mEq/L BUN 13 (8-23) mg/dL Creatinine 0.76 (0.60-1.20) mg/dL Glucose 76 (70-105) mg/dL Calcium 8.1 L (8.6-10.3) mg/dL Adrenal panel 11/15/17 11/15/17 Range/Units 05:08 05:08 Sodium 140 (136-145) mEq/L Potassium 3.7 (3.5-5.1) mEq/L Chloride 110 H (98-107) mEq/L Carbon Dioxide 21 L (23-29) mEq/L BUN 13 (8-23) mg/dL Creatinine 0.76 (0.60-1.20) mg/dL Glucose 76 (70-105) mg/dL Calcium 8.1 L (8.6-10.3) mg/dL Total Bilirubin 0.4 (0.3-1.0) mg/dL AST 31 (13-39) Units/L ALT 37 (7-52) Units/L Alkaline Phosphatase 59 (34-104) Units/L Albumin 2.6 L (3.5-5.7) g/dL - VTE Documentation of Mechanical Device: Intermittent pneumatic compression device Consult Discharge Plan - Plan Referrals: Rasheeda Yeh MD [Non-Partnered Physician] - Génesis Bell CNP [Advanced Practice Nurse] - 11/21/17 2:30 pm (f/u open choley by Dr. Graham; drain check) <Chadwick Aguiar - Last Filed: 11/16/17 12:47> Date of Encounter: 11/15/17 Objective Vital Signs - Last 8 Hours Temp Pulse Resp BP Pulse Ox 11/16/17 09:51 97.7 F 75 17 148/77 96 11/16/17 07:56 97.5 F L 75 18 152/84 94 Intake and Output 11/15/17 11/16/17 11/16/17 23:59 07:59 15:59 Intake Total 1600 / 1600 260 / 260 1160 / 1160 Output Total 575 / 575 1045 / 1045 255 / 255 Balance 1025 / 1025 -785 / -785 905 / 905 Intake: IV Fluids 1300 / 1300 200 / 200 1100 / 1100 0.9 % Sodium Chloride 1,000 ML 1000 / 1000 1000 / 1000 @ 100 mls/hr IVC .Q10H MANDO Rx#: [id number] Ofirmev 1,000 mg/100 ml 1,000 200 / 200 100 / 100 100 / 100 mg In 100 ml @ 400 mls/hr IVPB Q8H [facility]ANDO Rx#:[id number] Zosyn 3.375 GM In 0.9 % Sodium 100 / 100 100 / 100 Chloride (Mini-Bag +) 100 ML @ 25 mls/hr IVPB Q8HR MANDO Rx#: [id number] Oral 300 / 300 60 / 60 60 / 60 Output: Catheter 500 / 500 1000 / 1000 200 / 200 Wound Drainage 75 / 75 45 / 45 55 / 55 Right Upper Abdomen 75 / 75 45 / 45 55 / 55 Other: Meal Clear Breakfast Percent of Meal Consumed 0% Weight 65.6 kg Patient Weight 11/16/17 23:59 Weight 65.6 kg - Labs 11/15/17 05:08 11/15/17 05:08 - Attending Attestation I reviewed the above and agree with the above plan.
--- NOTE | 2017-11-15 11:02 | Gastroenterology Progress Note ---
<Vibha Block Nazanin - Last Filed: 11/15/17 11:11> Date of Encounter: 11/15/17 Time of Encounter: 10:59 - Assessment and plan (1) Acute cholecystitis Status: Acute Assessment and plan: 77-year-old female s/p open cholecystectomy, postoperative day #4, S/P ERCP with Dr. Barboza on 11/14/2017. -ERCP demonstrated mild common bile duct leak around the region of the cystic duct, and 2 stones approximately 5-6 mm in size removed from the CBD. A sphincterotomy was performed and a CBD stent placed. Pancreatic duct stent placed as well. -Elevated transaminases likely due to biliary injury, and less likely hepatitis , as transaminitis has resolved today. -Hepatitis profile negative. -FU RAUL. -Patient will need follow-up with GI as an outpatient in approximately 2 weeks from discharge. She will need repeat ERCP in approximately 6 weeks for stent removal. (2) Choledocholithiasis Status: Acute Assessment and plan: see management as per above. (3) Anemia Status: Chronic Assessment and plan: Hemoglobin 10.2 on arrival. -Patient states she has history of chronic anemia. -No signs of active bleeding. -Hgb stable. Qualifiers: Anemia type: unspecified type Qualified Code(s): D64.9 - Anemia, unspecified - Time Spent With Patient Total time spent is greater than 50% in coordination of care (as documented) at patient's floor/unit and/or counseling patient: - Subjective Interval history: Patient states she is feeling better this morning. Her only complaint is generalized fatigue. She states her abdominal pain is improving. She denies chest pain, shortness of breath, palpitations, dizziness, night sweats, or fevers. - Constitutional Vitals: Temp Pulse Resp BP Pulse Ox 98.2 F 71 16 138/77 92 11/15/17 06:55 11/15/17 06:55 11/15/17 06:55 11/15/17 06:55 11/15/17 06:55 General appearance: Present: cooperative, A&O X 3, no acute distress, answers questions appropriately - Head Head exam: Present: atraumatic, normocephalic - Eye Eye exam: Present: normal appearance, sclera anicteric - ENT ENT exam: Present: mucous membranes dry - Neck Neck exam general surgery: Present: normal inspection, trachea midline - Respiratory Respiratory exam: Present: CTAB - Cardiovascular Cardiovascular exam: Present: RRR, +S1, +S2 - GI/Abdominal GI/Abdominal exam: Present: normal bowel sounds, soft, tenderness (Mild postoperative edema surrounding surgical incision sites. Incisions clean dry and intact. AYSHA drain with approximately 60 mils of serosanguineous output.), no peritoneal signs. Absent: distended, firm, guarding - Extremities Exam Extremities exam: Present: radial pulses palpable and symmetrical. 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 coli (PCR) Not Detected (Not Detect) 11/10/17 21:42 - ABG ABG results: PT/INR, D-dimer PT 13.8 Seconds (9.4-12.1) H 11/10/17 21:42 - Impressions Impressions Cath/Invasive Procedure 11/14/17 13:50 IMPRESSION: No evidence of acute bile duct leak. Common bile duct stent placed. D/ / Dayton Mireles / Dayton Mireles Interpreting Provider: Dayton Mireles - VTE Documentation of Mechanical Device: Intermittent pneumatic compression device Consult Discharge Plan - Plan Instructions: Sepsis (DC) Referrals: Génesis Bell CNP [Advanced Practice Nurse] - 11/21/17 2:30 pm (f/u open choley by Dr. Graham; drain check) Rasheeda Yeh MD [Non-Partnered Physician] - (in 1-2 weeks) Emily Barboza MD [Partnered Physician] - (in 1-2 weeks) Prescriptions: Amoxicillin/Clavulanate [Augmentin] 875 mg PO BIDWM #10 tablet Gabapentin [Neurontin] 300 mg PO TID #30 capsule HYDROcodone/Acet 5/325 mg [[place] 5-325 mg] 1 tab PO TID PRN 5 Days #14 tablet PRN Reason: Moderate Pain Lactobacillus [Culturelle] 1 each PO BID #30 cap.sprink <Enzo Fabian - Last Filed: 12/05/17 07:16> Date of Encounter: 11/15/17 - Time Spent With Patient Total time spent is greater than 50% in coordination of care (as documented) at patient's floor/unit and/or counseling patient: - Constitutional Vitals: Temp Pulse Resp BP Pulse Ox 97.7 F 73 16 128/73 99 11/16/17 14:14 11/16/17 14:14 11/16/17 16:11 11/16/17 14:14 11/16/17 16:11 Results - Labs CBC & Chem 7: 11/15/17 05:08 11/15/17 05:08 Labs: Last Result Calcium 8.1 mg/dL (8.6-10.3) L 11/15/17 05:08 Entire Visit Hgb 9.6 g/dL (11.5-15.4) L 11/15/17 05:08 Hct 29.5 % (35.3-44.9) L 11/15/17 05:08 PT 13.8 Seconds (9.4-12.1) H 11/10/17 21:42 Total Bilirubin 0.4 mg/dL (0.3-1.0) 11/15/17 05:08 AST 31 Units/L (13-39) 11/15/17 05:08 ALT 37 Units/L (7-52) 11/15/17 05:08 Lipase 79 Units/L (11-82) 11/15/17 05:08 E. coli (PCR) Not Detected (Not Detect) 11/10/17 21:42 - ABG ABG results: PT/INR, D-dimer PT 13.8 Seconds (9.4-12.1) H 11/10/17 21:42 - Attending Attestation Patient appreciable biliary leak after cholecystectomy and this was stent and this was stented successfully... Asthma. The patient can be discharged when okay with you and to follow up with the stent removal in about 6 weeks and follow up with Dr. Tamra harrison in clinic I have personally performed a face to face evaluation on this patient. I have reviewed and agree with the care plan. History and Exam by me shows:
[2017-11-15] MEDS: OXYCODONE Oral CONC 10 MG/0.5 ML ORAL.SYG SL PRN ×2 (12:26→18:43)
[2017-11-15] MEDS: 0.9 % Sodium Chloride 1,000 ML IVC SCH ×2 (12:27→23:48)
[2017-11-15] MEDS: Melatonin 3 MG TABLET PO PRN (20:32)
[2017-11-16] MEDS: Piperacillin/Tazobactam 3.375 GM in 0.9 % Sodium Chloride Mini Bag 100 ML IVPB SCH ×2 (01:09→08:33)
[2017-11-16] MEDS: Ipratropium/Albuterol Neb 3 ML IH SCH ×3 (03:19→16:11)
[2017-11-16] MEDS: Acetaminophen IV 1,000 MG/100 ML INFUS..BTL IVPB SCH ×2 (03:44→12:09)
[2017-11-16] MEDS: 0.9 % Sodium Chloride 1,000 ML IVC SCH ×2 (08:31→10:25)
[2017-11-16] MEDS: Gabapentin 300 MG CAPSULE PO SCH ×2 (08:32→16:26)
[2017-11-16] MEDS: OXYCODONE Oral CONC 10 MG/0.5 ML ORAL.SYG SL PRN ×2 (08:33→16:23)
--- NOTE | 2017-11-16 13:29 | Discharge Summary ---
- NOTES TO OUTPATIENT PROVIDER Notes to Outpatient Provider: Patient admitted with sepsis from acute cholecystitis. Underwent laparoscopic cholecystectomy. She then underwent ERCP with placement of biliary stent and stone retrieval. Stents needs to be removed in 6 weeks. Patient will follow-up with GI after discharge. Orders not resulted at time of discharge: Pending orders 11/14/17 19:40 RAUL IgG PRASANNA rflx IFA Routine Date of Encounter: 11/16/17 Time of Encounter: 13:25 - Discharge Diagnosis (1) Sepsis Priority: Primary Status: Acute Qualifiers: Sepsis type: sepsis due to unspecified organism Qualified Code(s): A41.9 - Sepsis, unspecified organism (2) Acute cholecystitis Priority: Secondary Status: Acute (3) History of CVA (cerebrovascular accident) Priority: Secondary Status: Chronic (4) Acute blood loss as cause of postoperative anemia Priority: Secondary Status: Resolved (5) DVT prophylaxis Priority: Secondary Status: Acute Hospital course: Ms. Hernández is a 77 year old female patient with history of prior CVA, osteoarthritis who was hospitalized here after presenting with symptoms of abdominal pain nausea and vomiting. She was diagnosed with sepsis related to acute cholecystitis. Patient was started on IV antibiotics. Surgery was consulted. Patient underwent laparoscopic cholecystectomy on 11/11. She did require blood transfusion postsurgery due to postoperative anemia. Gastroenterology was consulted for possible ERCP due to possible presence of open duct of Luschka at the common bile duct. Patient underwent ERCP on 11/14 with 2 stones removed from CBD. Sphincterotomy was performed and is CBD stent was placed. She has since been doing well. She was evaluated by physical therapy and recommended placement to skilled rehabilitation. She is clinically stable for discharge from the surgical and medical standpoint today. She will complete 5 more days of antibiotic therapy. One out of 2 sets of blood culture was positive for staph epidermidis which is likely contaminant. Patient has not had any further episodes of fevers. Her blood counts have remained stable. She will be discharged to skilled rehabilitation whenever she is accepted there and has a bed available. Discharge discussed with: patient, social work, case management - Time Spent with Patient Total time spent providing and/or coordinating discharge services: Greater than 30 minutes (40 min) - Discharge Medications Prescriptions: Amoxicillin/Clavulanate [Augmentin] 875 mg PO BIDWM #10 tablet Gabapentin [Neurontin] 300 mg PO TID #30 capsule HYDROcodone/Acet 5/325 mg [[place] 5-325 mg] 1 tab PO TID PRN 5 Days #14 tablet PRN Reason: Moderate Pain Lactobacillus [Culturelle] 1 each PO BID #30 cap.sprink Home Medications: Citalopram Hydrobromide [Citalopram HBr] 10 mg PO DAILY 11/11/17 [History] Clopidogrel [Plavix] 75 mg PO DAILY 11/11/17 [History] Lisinopril [Zestril] 10 mg PO DAILY 11/11/17 [History] Polyethylene Glycol 3350 [MiraLAX bowel prep] 17 gm PO Q48H 11/11/17 [History] Rosuvastatin Calcium [Crestor] 5 mg PO HS 11/11/17 [History] Amoxicillin/Clavulanate [Augmentin] 875 mg PO BIDWM #10 tablet 11/16/17 [Rx] Gabapentin [Neurontin] 300 mg PO TID #30 capsule 11/16/17 [Rx] HYDROcodone/Acet 5/325 mg [[place] 5-325 mg] 1 tab PO TID PRN 5 Days #14 tablet [Rx] Lactobacillus [Culturelle] 1 each PO BID #30 cap.sprink 11/16/17 [Rx] Sal[place] [[place] Nasal [place]] 2 spray NS Q2H PRN #0 bottle 11/16/17 [Rx ] Allergies/Adverse Reactions: 3 Allergy/AdvReac Type Severity Reaction Status Date / Time prednisone AdvReac See Verified 11/11/17 09:35 Comments Date of admission: 11/10/17 21:48 Primary care physician: PCP NONE Consults: 11/10/17 21:54 Consult to Surgery [CONS] Routine Consulting Provider: [facility] Reason for Consult: Cholecystitis. Dr Graham was called by [facility] Call Completed: Yes 11/11/17 18:07 Consult to Occupational Therapy [CONS] Routine Comment: Evaluate, develop and implement POC Reason for Consult: discharge Does patient have active BEDREST order?: No Is patient medically & hemodynamically stable?: Yes Consult to Physical Therapy [CONS] Routine Comment: Evaluate, develop and implement POC Reason for Consult: weakness Does patient have active BEDREST order?: No Is patient medically & hemodynamically stable?: Yes 11/11/17 18:08 Consult to Speeder Worker [CONS] Routine Reason for SW Consult: ECF placement request 11/11/17 19:49 Consult to Gastroenterology [CONS] Routine Consulting Provider: Jayesh Joseph Reason for Consult: Spoke with Dr Barboza, patient with 1-2 mm transected duct of [place]ka off proximal bile duct during open cholecystectomy, need ERCP,stent Time Notified: 17:10 Call Completed: Yes Discharging clinician: Melanie Mckeon Anticipated date of discharge: 11/16/17 - Constitutional Vitals: Temp Pulse Resp BP Pulse Ox 97.7 F 75 17 148/77 96 11/16/17 09:51 11/16/17 09:51 11/16/17 09:51 11/16/17 09:51 11/16/17 09:51 General appearance: Present: A&O X 3, no acute distress, answers questions appropriately - Neck Neck exam general surgery: Present: supple, trachea midline. Absent: lymphadenopathy - Respiratory Respiratory exam: Present: CTAB. Absent: accessory muscle use, rales, rhonchi, wheezes - Cardiovascular Cardiovascular exam: Present: RRR, +S1, +S2. Absent: diastolic murmur, gallop, rubs, systolic murmur - GI/Abdominal GI/Abdominal exam: Present: normal bowel sounds, soft, tenderness (right upper quadrant), no peritoneal signs. Absent: distended - Extremities Exam Extremities exam: Present: warm, radial pulses palpable and symmetrical. Absent : calf tenderness, cyanotic, pedal edema - Neurological Exam Neurological exam: Present: CN II-XII intact, oriented X3, no focal deficits. Absent: facial droop, speech deficit - Skin Skin exam: Present: dry, intact - Patient Status Disposition: Transfer SNF Functional capacity at discharge: uses cane/walker Overall status at discharge: patient is progressing back to baseline - Discharge Instructions Instructions: Sepsis (DC) Follow Up With: Génesis Bell CNP [Advanced Practice Nurse] - 11/21/17 2:30 pm (f/u open choley by Dr. Graham; drain check) Rasheeda Yeh MD [Non-Partnered Physician] - (in 1-2 weeks) Emily Barboza MD [Partnered Physician] - (in 1-2 weeks) - Diet and Activity Activity: increase activity as tolerated Diet: low fat, low cholesterol, low salt diet - VTE Documentation of Mechanical Device: Intermittent pneumatic compression device
--- NOTE | 2017-11-16 13:44 | Physician Discharge Referral ---
ExtendedCare Referral Info Transfer To: [facility] Provider in Charge after Transfer: PCP Institutional Level of Care: Skilled - Diagnosis (1) Sepsis Priority: Primary Status: Acute (2) Acute cholecystitis Priority: Secondary Status: Acute (3) History of CVA (cerebrovascular accident) Priority: Secondary Status: Chronic (4) Acute blood loss as cause of postoperative anemia Priority: Secondary Status: Resolved (5) DVT prophylaxis Priority: Secondary Status: Acute Prognosis: Fair Aware of Diagnosis: Patient Aware of Prognosis: Patient - Transfer Medications Prescriptions: Amoxicillin/Clavulanate [Augmentin] 875 mg PO BIDWM #10 tablet Gabapentin [Neurontin] 300 mg PO TID #30 capsule HYDROcodone/Acet 5/325 mg [[place] 5-325 mg] 1 tab PO TID PRN 5 Days #14 tablet PRN Reason: Moderate Pain Lactobacillus [Culturelle] 1 each PO BID #30 cap.sprink Home Medications: Citalopram Hydrobromide [Citalopram HBr] 10 mg PO DAILY 11/11/17 [History] Clopidogrel [Plavix] 75 mg PO DAILY 11/11/17 [History] Lisinopril [Zestril] 10 mg PO DAILY 11/11/17 [History] Polyethylene Glycol 3350 [MiraLAX bowel prep] 17 gm PO Q48H 11/11/17 [History] Rosuvastatin Calcium [Crestor] 5 mg PO HS 11/11/17 [History] Amoxicillin/Clavulanate [Augmentin] 875 mg PO BIDWM #10 tablet 11/16/17 [Rx] Gabapentin [Neurontin] 300 mg PO TID #30 capsule 11/16/17 [Rx] HYDROcodone/Acet 5/325 mg [[place] 5-325 mg] 1 tab PO TID PRN 5 Days #14 tablet [Rx] Lactobacillus [Culturelle] 1 each PO BID #30 cap.sprink 11/16/17 [Rx] Saline Nasal [place] [Seth Ward Nasal [place]] 2 spray NS Q2H PRN #0 bottle 11/16/17 [Rx ] Allergies/Adverse Reactions: 3 Allergy/AdvReac Type Severity Reaction Status Date / Time prednisone AdvReac See Verified 11/11/17 09:35 Comments - Respiratory Orders Oxygen / L per min (keep sats >90%) Smoking Cessation: Smoking cessation has been advised. For more information, call the [place] Tobacco Quit Line at 2-827-CQWD-NOW. - Ancillary Orders May consult with Dentist, Six Pack Loader Operator, Asbestos Siding Mechanic PRN - Advance Directives Code Status: DNR-Arrest - Mobility Orders Other (per PT evaluation) - Rehabiliation Orders Rehab Potential: Fair Rehab Orders: Evaluation for Physical Therapy, Evaluation for Occupational Therapy - Diet Orders Cardiac CERTIFICATION: I certify that the transfer of the above named patient to an Extended Care Facility is necessary for the continuing treatment of the diagnosis listed. The above information is true and accurate reflection of patient's current condition. Confidential - Redisclosure prohibited without a patient's written consent.
[2017-11-16 14:18] VITALS: BP 128/73
[2017-11-17 15:06] LABS: ANA IgG by ELISA NONE DETECTED (None Detected)
== END 2017-11-16 17:40 | DRG 854 ==
LOC: 3ANU → SUATTDRO 21:48
PROVIDERS: ADMIT Hospitalist; ATTEND Internal Medicine